=== PATIENT | female | born 1950 | race Caucasian/White ===

== ENCOUNTER 2019-03-23 16:15 | Emergency (ER) | payer MEDICARE, MEDICAID ==
[~2019-03-23] VITALS: Ht 180.3 cm; Wt 100.0 kg
[~2019-03-23 16:15] MED LIST: ATOR40TA PO; BAC10T PO; CHOL400T32 PO; CYA500T PO; DOCU100C68 PO; EFF25T PO; FERR325T28 PO; GABA-338 PO; LISI-222 PO; LOP25T PO; OMEP-84 PO; OXYC-658 PO; PER5325T PO; SYN0.075T PO; [UNRECOGNIZED DRUG - OTHER]
[2019-03-23 17:14] VITALS: BP 172/74
== END 2019-03-23 17:25 | disposition home or self-care (01) ==
LOC: ER 16:15
DX: S01.112A Laceration without foreign body of left eyelid and periocular area, initial encounter (principal); I10 Essential (primary) hypertension; K21.9 Gastro-esophageal reflux disease without esophagitis; Z90.710 Acquired absence of both cervix and uterus; Z98.890 Other specified postprocedural states; Z88.8 Allergy status to other drugs, medicaments and biological substances; Z79.899 Other long term (current) drug therapy; W01.0XXA Fall on same level from slipping, tripping and stumbling without subsequent striking against object, initial encounter; Y93.89 Activity, other specified; Y92.89 Other specified places as the place of occurrence of the external cause; Y99.8 Other external cause status
CPT/HCPCS: 12001; 70450; 99284

== ENCOUNTER 2019-11-14 08:45 | Inpatient (IN) | payer MEDICAID, MEDICARE, OTHER ==
[2019-11-14] VITALS (11 sets, daily range): BP systolic 135–170; BP diastolic 65–92
[~2019-11-14] VITALS: Ht 165.1 cm; Wt 94.0 kg
[~2019-11-14 08:45] MED LIST changes: -CYA500T PO; +CYAN500T63 PO
[2019-11-14] MEDS ORDERED: normal saline 1000ML IV soln IV ONE (09:10)
[2019-11-14] MEDS ORDERED: ondansetron/PF 4mg/2ml inj IV ONE (09:10)
[2019-11-14] MEDS ORDERED: pantoprazole 40 MG vial IV ONE (09:10)
[2019-11-14] MEDS: pantoprazole 40MG/NS 100ML BAG 100 ML IV SCH ×3 (09:48→16:00)
[2019-11-14 10:48] LABS: ALANINE AMINOTRANSFERASE 24 U/L (12-78); ALBUMIN 3.8 G/DL (3.4-5.0); ALBUMIN/GLOBULIN RATIO 0.9 (1.1-1.5); ALKALINE PHOSPHATASE 123 IU/L (46-116); ANION GAP 12 (8-16); ASPARTATE AMINO TRANSFERASE 26 U/L (10-37); BILIRUBIN,TOTAL 0.9 MG/DL (0.1-1.0); BLOOD UREA NITROGEN 21 MG/DL (7-18); BUN/CREATININE RATIO 17.5 (6.6-38.0); CALCIUM 10.1 MG/DL (8.5-10.1); CHLORIDE 103 MMOL/L (99-107); GLUCOSE 110 MG/DL (70-104); POTASSIUM 3.8 MMOL/L (3.5-5.1); SODIUM 139 MMOL/L (135-145); TOTAL PROTEIN 8.1 G/DL (6.4-8.2); eGFR 45 ML/MIN
[2019-11-14 11:24] LABS: BASOPHILS # (AUTO) 0.1 X10'3 (0-0.2); BASOPHILS % (AUTO) 0.5 % (0-1); EOSINOPHILS % (AUTO) 0.1 % (0-6); HEMATOCRIT 38.8 % (35.0-45.0); LYMPHOCYTES # (AUTO) 1.3 X10'3 (1.1-4.8); MEAN CORPUSCULAR HEMOGLOBIN 29.6 PG (27.0-31.0); MEAN CORPUSCULAR HGB CONC 33.6 g/dL (33.0-36.5); MEAN CORPUSCULAR VOLUME 88.2 FL (78-98); MEAN PLATELET VOLUME 8.8 FL (7.4-10.4); MONOCYTES # (AUTO) 0.6 X10'3 (0-0.9); MONOCYTES % (AUTO) 4.8 % (2-12); NEUTROPHILS % (AUTO) 83.6 % (42-75); PLATELET COUNT 338 X10'3 (140-440); RED CELL DISTRIBUTION WIDTH 13.8 % (11.5-14.5); WHITE BLOOD COUNT 11.9 X10'3 (4.5-11.0)
[2019-11-14 11:50] LABS: PARTIAL THROMBOPLASTIN TIME 24 SECONDS (22-32)
[2019-11-14] MEDS ORDERED: MELO-102 PO (12:48)
[2019-11-14] MEDS ORDERED: HYDR12.55 PO (12:48)
[2019-11-14] MEDS ORDERED: LEVO100T9 PO (12:49)
[2019-11-14] MEDS ORDERED: MIRA50TA PO (12:52)
[2019-11-14] MEDS ORDERED: BUPR150T6 PO (12:52)
[2019-11-14] MEDS ORDERED: GABA600T13 PO (12:52)
[2019-11-14] MEDS ORDERED: ALEN35TA21 PO (12:52)
[2019-11-14] MEDS ORDERED: magnesium hydroxide 30ml (MOM) UD suspension PO PRN (12:55)
[2019-11-14] MEDS ORDERED: metoclopramide 5 mg/ml inj IV PRN (12:55)
[2019-11-14] MEDS ORDERED: ondansetron/PF 4mg/2ml inj IV PRN (12:55)
[2019-11-14] MEDS ORDERED: HYDROcodone/acetaminophen 10/325mg tab PO PRN (12:55)
[2019-11-14] MEDS ORDERED: diphenhydrAMINE 25mg capsule PO PRN (12:55)
[2019-11-14] MEDS ORDERED: mag hydrox/Alum hydrox/simeth 30ml oral suspension PO PRN (12:55)
[2019-11-14] MEDS ORDERED: diphenhydrAMINE 50 mg/ml inj IV PRN (12:55)
[2019-11-14] MEDS ORDERED: magnesium 4gm in 100ml NS 100 ML IV PRN (12:55)
[2019-11-14] MEDS ORDERED: magnesium 2GM in 50ml NS 50 ML IV PRN (12:55)
[2019-11-14] MEDS ORDERED: potassium CL 10mEq/100ml bag 100 ML IV PRN ×2 (12:55)
[2019-11-14] MEDS ORDERED: acetaminophen 650mg rectal suppository RC PRN (12:55)
[2019-11-14] MEDS ORDERED: acetaminophen 325mg tablet PO PRN ×2 (12:55)
[2019-11-14] MEDS ORDERED: potassium Cl 20 mEq SR tablet PO PRN (12:55)
[2019-11-14] MEDS ORDERED: HYDROcodone/acetaminophen 5mg/325mg tablet PO PRN (12:55)
[2019-11-14] MEDS ORDERED: magnesium Cl slow-release 64mg tablet PO PRN (12:55)
[2019-11-14] MEDS ORDERED: bisacodyl 10mg suppository rectal RC PRN (12:55)
--- NOTE | 2019-11-14 14:02 | NUR ---
PT IV RAC INFULTRATED, REMOVED IV, CANULA INTACT, GAUZE AND COBAN APPLIED, PICC NURSE PAGED TO HAVE PIV PLACED.
--- NOTE | 2019-11-14 14:04 | NUR ---
PICC NURSES AT BEDSIDE NOW.
--- NOTE | 2019-11-14 14:22 | NUR ---
PICC NURSE IS FINISHED, ESTABLISHED PIV RIGHT UPPER ARM 20 GAUGE, PT TOLERATED PROCEDURE WELL.
[2019-11-14] MEDS ORDERED: pantoprazole 40MG/NS 100ML BAG 100 ML IV SCH (16:00)
[2019-11-14] MEDS ORDERED: MIDAZolam 5mg/5ml vial ONE (16:12)
[2019-11-14] MEDS ORDERED: fentaNYL/PF 50MCG/1 ML 2ML syringe ONE (16:12)
[2019-11-14] MEDS ORDERED: LIDOcaine Viscous 15ml cup ONE (16:12)
[2019-11-14 16:39] LABS: OCCULT BLOOD STOOL POSITIVE (Neg)
[2019-11-14] MEDS: K and/or MAG REPLACEMENT MC SCH (20:00)
[2019-11-14] MEDS: docusate sod 100mg capsule PO SCH (20:00)
[2019-11-14] MEDS: normal saline 1000ml 1,000 ML IV SCH ×2 (20:03→22:54)
[2019-11-14] MEDS: nystatin 15 GM powder TP SCH (21:59)
[2019-11-14] MEDS: temazepam 15mg capsule PO PRN (21:59)
--- NOTE | 2019-11-14 21:59 | NUR ---
Patient in room GUY 348. I have received report from LOLA Jenkins and had the opportunity to ask questions and assume patient care.
[2019-11-15] MEDS: gabapentin 300mg capsule PO SCH ×3 (00:30→16:45)
[2019-11-15] MEDS: pantoprazole 40MG/NS 100ML BAG 100 ML IV SCH ×5 (01:00→16:00)
[2019-11-15] MEDS ORDERED: BORIC ACID EACHEYE ONE (02:05)
[2019-11-15] MEDS ORDERED: [UNRECOGNIZED DRUG - OTHER] EACHEYE ONE (02:05)
[2019-11-15] MEDS ORDERED: WATER EACHEYE ONE (02:05)
[2019-11-15] MEDS ORDERED: SODIUM CHLORIDE EACHEYE ONE (02:05)
[2019-11-15 05:04] LABS: HEMATOCRIT 30.8 % (35.0-45.0); HEMOGLOBIN 10.5 g/dl (12.0-16.0); MEAN CORPUSCULAR HEMOGLOBIN 30.7 PG (27.0-31.0); MEAN CORPUSCULAR HGB CONC 34.1 g/dL (33.0-36.5); MEAN CORPUSCULAR VOLUME 89.8 FL (78-98); MEAN PLATELET VOLUME 9.4 FL (7.4-10.4); PLATELET COUNT 258 X10'3 (140-440); RED BLOOD COUNT 3.43 X10'6 (4.20-5.60); RED CELL DISTRIBUTION WIDTH 13.7 % (11.5-14.5); WHITE BLOOD COUNT 8.5 X10'3 (4.5-11.0)
[2019-11-15 05:18] LABS: ALBUMIN 2.8 G/DL (3.4-5.0); ANION GAP 9 (8-16); BLOOD UREA NITROGEN 14 MG/DL (7-18); BUN/CREATININE RATIO 14.1 (6.6-38.0); CALCIUM 8.1 MG/DL (8.5-10.1); CHLORIDE 109 MMOL/L (99-107); CREATININE 0.99 MG/DL (0.40-0.90); GLUCOSE 90 MG/DL (70-104); MAGNESIUM 1.6 MG/DL (1.5-2.4); POTASSIUM 3.4 MMOL/L (3.5-5.1); SODIUM 142 MMOL/L (135-145); TOTAL CARBON DIOXIDE 24.4 MMOL/L (24-32); eGFR 56 ML/MIN
[2019-11-15] MEDS: normal saline 1000ml 1,000 ML IV SCH (05:45)
--- NOTE | 2019-11-15 06:44 | NUR ---
Problems reprioritized. Patient report given, questions answered & plan of care reviewed with LOLA Feliz.
[2019-11-15 07:00] VITALS: BP 153/80
[2019-11-15] MEDS: K and/or MAG REPLACEMENT MC SCH ×2 (08:00→20:00)
[2019-11-15] MEDS: levoTHYROXINE 100mcg tablet PO SCH (09:03)
[2019-11-15] MEDS: mirabegron 25mg ER tablet PO SCH (09:04)
[2019-11-15] MEDS: docusate sod 100mg capsule PO SCH ×2 (09:04→20:00)
[2019-11-15] MEDS: HYDROchlorothiazide 12.5mg capsule PO SCH (09:05)
[2019-11-15] MEDS: potassium Cl 20 mEq SR tablet PO PRN ×2 (09:05→19:25)
[2019-11-15] MEDS: metoprolol tartrate 25mg tablet PO SCH (09:05)
[2019-11-15] MEDS: donepezil 5mg tablet PO SCH (09:06)
[2019-11-15] MEDS: buproprion 150mg XL (24-hour) tablet PO SCH (09:06)
[2019-11-15] MEDS: nystatin 15 GM powder TP SCH ×3 (09:06→21:37)
[2019-11-15 11:00] VITALS: BP 128/72
[2019-11-15] MEDS ORDERED: [UNRECOGNIZED DRUG - OTHER] EACHEYE PRN (12:15)
[2019-11-15] MEDS ORDERED: SODIUM CHLORIDE EACHEYE PRN (12:15)
[2019-11-15] MEDS ORDERED: BORIC ACID EACHEYE PRN (12:15)
[2019-11-15] MEDS ORDERED: WATER EACHEYE PRN (12:15)
--- NOTE | 2019-11-15 12:55 | NUR ---
Spoke to MD about pt. and her irritated eyeballs. Md order scheduled eye irrigations and also PRN q4 hour. He is aware of slight drop in H&H. No plans to discharge pt. at this time r/t the need to monitor H&H status and possible colonoscopy.
[2019-11-15] MEDS: SODIUM CHLORIDE EACHEYE SCH ×2 (13:52→19:34)
[2019-11-15] MEDS: [UNRECOGNIZED DRUG - OTHER] EACHEYE SCH ×2 (13:52→19:34)
[2019-11-15] MEDS: BORIC ACID EACHEYE SCH ×2 (13:52→19:34)
[2019-11-15] MEDS: WATER EACHEYE SCH ×2 (13:52→19:34)
[2019-11-15 18:00] VITALS: BP 137/70
--- NOTE | 2019-11-15 19:04 | NUR ---
Gave report to Samantha DAVILA.
[2019-11-15] MEDS: pantoprazole 40mg Tablet.DR PO SCH (19:39)
[2019-11-15] MEDS ORDERED: atorvastatin 20mg tablet PO SCH (21:00)
[2019-11-15] MEDS: temazepam 15mg capsule PO PRN (21:51)
[2019-11-15 23:59] VITALS: BP 140/68
[2019-11-16] MEDS: gabapentin 300mg capsule PO SCH ×2 (01:57→09:07)
[2019-11-16 05:10] LABS: HEMATOCRIT 32.7 % (35.0-45.0); MEAN CORPUSCULAR HEMOGLOBIN 30.1 PG (27.0-31.0); MEAN CORPUSCULAR HGB CONC 33.7 g/dL (33.0-36.5); MEAN CORPUSCULAR VOLUME 89.3 FL (78-98); MEAN PLATELET VOLUME 9.4 FL (7.4-10.4); PLATELET COUNT 258 X10'3 (140-440); RED BLOOD COUNT 3.66 X10'6 (4.20-5.60); RED CELL DISTRIBUTION WIDTH 13.6 % (11.5-14.5); WHITE BLOOD COUNT 8.2 X10'3 (4.5-11.0)
[2019-11-16 05:16] LABS: ALBUMIN 2.8 G/DL (3.4-5.0); ANION GAP 3 (8-16); BLOOD UREA NITROGEN 13 MG/DL (7-18); BUN/CREATININE RATIO 12.9 (6.6-38.0); CALCIUM 8.7 MG/DL (8.5-10.1); CHLORIDE 108 MMOL/L (99-107); CREATININE 1.01 MG/DL (0.40-0.90); GLUCOSE 97 MG/DL (70-104); MAGNESIUM 1.7 MG/DL (1.5-2.4); SODIUM 138 MMOL/L (135-145); TOTAL CARBON DIOXIDE 27.1 MMOL/L (24-32); eGFR 54 ML/MIN
--- NOTE | 2019-11-16 06:15 | NUR ---
Patient in room GUY 348. I have received report from Samantha Boogie RN & Emilee RN and had the opportunity to ask questions and assume patient care.
[2019-11-16 06:30] VITALS: BP 127/62
--- NOTE | 2019-11-16 06:39 | NUR ---
Problems reprioritized. Patient report given, questions answered & plan of care reviewed with LOLA Burnham.
[2019-11-16] MEDS: K and/or MAG REPLACEMENT MC SCH (07:03)
[2019-11-16] MEDS: buproprion 150mg XL (24-hour) tablet PO SCH (09:06)
[2019-11-16] MEDS: HYDROchlorothiazide 12.5mg capsule PO SCH (09:06)
[2019-11-16] MEDS: docusate sod 100mg capsule PO SCH (09:06)
[2019-11-16] MEDS: levoTHYROXINE 100mcg tablet PO SCH (09:07)
[2019-11-16] MEDS: pantoprazole 40mg Tablet.DR PO SCH (09:07)
[2019-11-16] MEDS: metoprolol tartrate 25mg tablet PO SCH (09:09)
[2019-11-16] MEDS: mirabegron 25mg ER tablet PO SCH (09:10)
[2019-11-16] MEDS: donepezil 5mg tablet PO SCH (09:10)
[2019-11-16] MEDS: nystatin 15 GM powder TP SCH (09:11)
[2019-11-16] MEDS: WATER EACHEYE SCH (09:34)
[2019-11-16] MEDS: BORIC ACID EACHEYE SCH (09:34)
[2019-11-16] MEDS: [UNRECOGNIZED DRUG - OTHER] EACHEYE SCH (09:34)
[2019-11-16] MEDS: SODIUM CHLORIDE EACHEYE SCH (09:34)
[2019-11-16] MEDS ORDERED: NYSPWD TP (10:00)
[2019-11-16] MEDS ORDERED: PANT40TA4 PO (10:00)
[2019-11-16 11:00] VITALS: BP 129/73
--- NOTE | 2019-11-16 12:55 | NUR ---
DC inst provided to pt & pt's . IV DC'd, tip intact. All belongings sent w/pt. WC to front lobby.
== END 2019-11-16 12:50 | disposition home or self-care (01) | DRG 391 ==
LOC: ER 08:46 → ED HOLD 12:54 → SUR 3N 14:52 → CMPBEDREQ 20:01
PROVIDERS: ADMIT Family Medicine; ATTEND Family Medicine
PROC: 0DB68ZX Excision of Stomach, Via Natural or Artificial Opening Endoscopic, Diagnostic (ICD-10-PCS; principal; 2019-11-14)
DX: K21.0 Gastro-esophageal reflux disease with esophagitis (principal); N17.0 Acute kidney failure with tubular necrosis; K57.90 Diverticulosis of intestine, part unspecified, without perforation or abscess without bleeding; E03.9 Hypothyroidism, unspecified; E78.5 Hyperlipidemia, unspecified; M25.661 Stiffness of right knee, not elsewhere classified; I12.9 Hypertensive chronic kidney disease with stage 1 through stage 4 chronic kidney disease, or unspecified chronic kidney disease; N18.9 Chronic kidney disease, unspecified; D64.9 Anemia, unspecified; R00.0 Tachycardia, unspecified; E86.0 Dehydration; F32.9 Major depressive disorder, single episode, unspecified; K44.9 Diaphragmatic hernia without obstruction or gangrene; Z79.899 Other long term (current) drug therapy; Z90.710 Acquired absence of both cervix and uterus; Z88.8 Allergy status to other drugs, medicaments and biological substances; Z98.51 Tubal ligation status
CPT/HCPCS: 36415; 43239; 71045; 80048; 80053; 82272; 83605; 83735; 84443; 85025; 85027; 85610; 85730; 86885; 86900; 86901; 87081; 88305; 88342; 93005; 96361; 96374; 96375; 99152; 99285; A4620; C9113; G0378; J2250; J2405; J3010; J7030; J7040

== ENCOUNTER 2022-10-27 10:27 | Emergency (ER) | payer OTHER, BC, MEDICAID ==
[~2022-10-27] VITALS: Ht 166.4 cm; Wt 70.5 kg
[~2022-10-27 10:27] MED LIST changes: +ACET-812 PO; +ALEN35TA53 PO; -BAC10T PO; +BUPR150T23 PO; +CHOL100017 PO; -CHOL400T32 PO; +CIPR-202 PO; -CYAN500T63 PO; -DOCU100C68 PO; +DOCU250C34 PO; -EFF25T PO; -FERR325T28 PO; -GABA-338 PO; +GABA600T13 PO; +HYDR12.55 PO; +LEVO100T9 PO; -LISI-222 PO; +LOSA50TA64 PO; +MELA10CA2 PO; +MELO-102 PO; +METR-159 PO; -OMEP-84 PO; +OMEP20CA16 PO; +OXYB5TAB16 PO; -OXYC-658 PO; -PER5325T PO; +POLY17PO10 PO; +POTA8CAP20 PO; -SYN0.075T PO; +TRAZ-251 PO; -[UNRECOGNIZED DRUG - OTHER]
[2022-10-27 10:59] LABS: BASOPHILS # (AUTO) 0.1 X10'3 (0-0.2); BASOPHILS % (AUTO) 1.2 % (0-1); EOSINOPHILS % (AUTO) 0.2 % (0-6); HEMATOCRIT 31.4 % (35.0-45.0); HEMOGLOBIN 9.7 g/dl (12.0-16.0); LYMPHOCYTES # (AUTO) 1.8 X10'3 (1.1-4.8); LYMPHOCYTES % (AUTO) 18.1 % (21-51); MEAN CORPUSCULAR HEMOGLOBIN 24.6 PG (27.0-31.0); MEAN CORPUSCULAR VOLUME 79.2 FL (78-98); MEAN PLATELET VOLUME 8.3 FL (7.4-10.4); MONOCYTES # (AUTO) 0.9 X10'3 (0-0.9); MONOCYTES % (AUTO) 9.1 % (2-12); NEUTROPHILS # (AUTO) 7.3 X10'3 (1.8-7.7); NEUTROPHILS % (AUTO) 71.4 % (42-75); PLATELET COUNT 416 X10'3 (140-440); RED BLOOD COUNT 3.96 X10'6 (4.20-5.60); WHITE BLOOD COUNT 10.2 X10'3 (4.5-11.0)
[2022-10-27 11:12] LABS: ALANINE AMINOTRANSFERASE 11 U/L (12-78); ALBUMIN 3.8 G/DL (3.4-5.0); ALBUMIN/GLOBULIN RATIO 0.9 (1.1-1.5); ALKALINE PHOSPHATASE 60 IU/L (46-116); ANION GAP 19 (8-16); ASPARTATE AMINO TRANSFERASE 17 U/L (10-37); BILIRUBIN,TOTAL 0.6 MG/DL (0.1-1.0); BLOOD UREA NITROGEN 14 MG/DL (7-18); BUN/CREATININE RATIO 13.6 (6.6-38.0); CALCIUM 9.5 MG/DL (8.5-10.1); CHLORIDE 101 MMOL/L (99-107); CREATININE 1.03 MG/DL (0.40-0.90); GLUCOSE 111 MG/DL (70-104); LIPASE 69 U/L (73-393); POTASSIUM 3.3 MMOL/L (3.5-5.1); SODIUM 137 MMOL/L (135-145); TOTAL CARBON DIOXIDE 17.1 MMOL/L (24-32); TOTAL PROTEIN 7.9 G/DL (6.4-8.2); eGFR 53 ML/MIN
[2022-10-27 11:16] LABS: ANISOCYTOSIS 2+; ELLIPTOCYTES FEW; MICROCYTOSIS 1+; PLATELET ESTIMATE NORMAL
[2022-10-27 11:17] LABS: HYPOCHROMASIA 1+; POLYCHROMASIA FEW
[2022-10-27] MEDS ORDERED: magnesium citrate 296ml oral solution PO ONE (12:25)
[2022-10-27] MEDS ORDERED: mineral oil 133ml enema RC STA (12:25)
[2022-10-27] MEDS ORDERED: bisacodyl 10mg suppository rectal RC STA (12:53)
[2022-10-27] MEDS ORDERED: lactulose 20gm/30ml cup PO ONE (12:55)
[2022-10-27] MEDS ORDERED: polyethylene glycol 3350 17gm powd pack PO SCH (12:55)
--- NOTE | 2022-10-27 13:00 | NUR ---
verbal orders to give mineral enema if its available in [facility].
[2022-10-27 13:12] LABS: CLARITY,URINE SLIGHTLY CLOUDY (Clear); GLUCOSE, URINE NEGATIVE (Neg); KETONES,URINE >=80 mg/dl (Neg); LEUKOCYTE ESTERASE ,URINE SMALL (Neg); NITRITES, URINE NEGATIVE (Neg); OCCULT BLOOD,URINE SMALL (Neg); PROTEIN,URINE NEGATIVE (Neg); UROBILINOGEN,URINE 0.2 E.U/dL (0.2-1.0)
[2022-10-27 13:14] LABS: UA COLLECTION TYPE CLN CATCH MIDSTREAM
[2022-10-27 13:15] LABS: COLOR,URINE YELLOW (Yellow)
[2022-10-27 13:21] LABS: BACTERIA,URINE 2+ /HPF (Neg); MUCUS STRANDS MANY /LPF (Neg); RBC,URINE 0-2 /HPF (0-2); SQUAMOUS EPITHELIAL CELL,UR MANY /LPF (FEW); WBC CLUMPS,URINE FEW /HPF (NEGATIVE); WBC,URINE 0-4 /HPF (0-4)
--- NOTE | 2022-10-27 13:30 | NUR ---
NOTIFIED DR ESTRADA THAT WE HAVE MINERAL ENEMA , PER MD ROSE TO ADMIN THE ENEMA FOR CONSTIPATION.
[2022-10-27] MEDS ORDERED: POTASSIUM BICARB 20meq eff tab 20 MEQ TABLET.EFF PO ONE (14:10)
--- NOTE | 2022-10-27 14:33 | NUR ---
pt has small soft bm after the mineral enema.
--- NOTE | 2022-10-27 15:10 | NUR ---
PT STATED SHE HAD ALREADY CALLED HER TO PICK HER UP .
[2022-10-27 15:38] VITALS: BP 152/90
== END 2022-10-27 16:21 | disposition home or self-care (01) ==
LOC: ER 10:28
DX: K59.00 Constipation, unspecified (principal); E87.6 Hypokalemia; E78.00 Pure hypercholesterolemia, unspecified; I10 Essential (primary) hypertension; K21.9 Gastro-esophageal reflux disease without esophagitis; E03.9 Hypothyroidism, unspecified; Z86.2 Personal history of diseases of the blood and blood-forming organs and certain disorders involving the immune mechanism; Z90.710 Acquired absence of both cervix and uterus; Z98.890 Other specified postprocedural states; Z79.2 Long term (current) use of antibiotics; Z79.899 Other long term (current) drug therapy
CPT/HCPCS: 74018; 80053; 81001; 83690; 85008; 85025; 99285

== ENCOUNTER 2022-11-01 10:08 | Emergency (ER) | payer OTHER, BC, MEDICAID ==
[~2022-11-01] VITALS: Ht 165.1 cm; Wt 70.5 kg
[~2022-11-01 10:08] MED LIST changes: -CIPR-202 PO; -METR-159 PO; -POLY17PO10 PO
[2022-11-01] MEDS ORDERED: acetaminophen 325mg tablet PO ONE (11:30)
[2022-11-01] MEDS ORDERED: ketorolac trometh inj. 60 MG/2 ML VIAL IM ONE (11:30)
[2022-11-01 12:11] VITALS: BP 143/70
--- NOTE | 2022-11-01 12:17 | NUR ---
Pt laying in bed, eyes closed. Respirations are even and unlabored. Pt in no acute distress.
--- NOTE | 2022-11-01 13:02 | NUR ---
Pt able to ambulate approximately 15 feet with use of walker. Call to [facility] for ride.
--- NOTE | 2022-11-01 14:15 | NUR ---
Pt still awaiting transportation. Pt's significant other is patients ride. Unable to get ahold of s/o as he does not have a cell phone. Home phone has been called numerous times without answer. Pt laying in bed in no acute distress.
== END 2022-11-01 14:54 | disposition home or self-care (01) ==
LOC: ER 10:09
DX: M25.561 Pain in right knee (principal); E78.00 Pure hypercholesterolemia, unspecified; I10 Essential (primary) hypertension; K21.9 Gastro-esophageal reflux disease without esophagitis; E03.9 Hypothyroidism, unspecified; Z90.710 Acquired absence of both cervix and uterus
CPT/HCPCS: 73564; 96372; 99284; J1885; A6449

== ENCOUNTER 2024-03-31 15:53 | Emergency (ER) | payer OTHER, BC, MEDICAID ==
[~2024-03-31] VITALS: Ht 165.1 cm; Wt 68.0 kg
[~2024-03-31 15:53] MED LIST changes: +LOPE2CAP PO; +ONDA8TAB13 PO; -OXYB5TAB16 PO; +OXYB5TAB21 PO
[2024-03-31 16:03] VITALS: BP 130/86; PULSE 93; O2SAT 97
[2024-03-31] MEDS ORDERED: PRED10TA23 PO (18:53)
[2024-03-31] MEDS ORDERED: MELO-100 PO (18:53)
[2024-03-31 19:06] VITALS: RESP 18; TEMP 98
== END 2024-03-31 19:21 | disposition home or self-care (01) ==
LOC: ER 15:54
DX: M19.011 Primary osteoarthritis, right shoulder (principal); M17.11 Unilateral primary osteoarthritis, right knee; E78.00 Pure hypercholesterolemia, unspecified; I10 Essential (primary) hypertension; K21.9 Gastro-esophageal reflux disease without esophagitis; E03.9 Hypothyroidism, unspecified; Z79.899 Other long term (current) drug therapy; Z79.1 Long term (current) use of non-steroidal anti-inflammatories (NSAID); Z79.2 Long term (current) use of antibiotics; Z90.710 Acquired absence of both cervix and uterus
CPT/HCPCS: 73030; 73564; 99284

== ENCOUNTER 2025-06-15 12:57 | Inpatient (IN) | payer OTHER, BC ==
[~2025-06-15] VITALS: Ht 166.4 cm; Wt 83.3 kg
[~2025-06-15 12:57] MED LIST changes: +GABA-1405 PO; -GABA600T13 PO; +MELA10CA11 PO; -MELA10CA2 PO; +MELO-100 PO; +ONDA-245 PO; -ONDA8TAB13 PO
--- NOTE | 2025-06-15 13:27 | ELECTROCARDIOGRAPH REPORT ---
[facility] Test Date: 2025-06-15 Test Time: 13:23:59 Pat Name: ERLIN NÚÑEZ Department: [facility] Patient ID: [facility]-[id number] Room: ED 10 Gender: F Blood Bank Specialist: : 1950 Requested By: SAIDA PADILLA Order Number: [id number] Reading MD: Dr. Billy Nieto Measurements Intervals [address] [place] Rate: 76 P: 29 AL: 185 QRS: -33 QRSD: 99 T: 7 QT: 401 QTc: 451 Interpretive Statements Sinus rhythm Inferior infarct, old Electronically Signed On 06-15-2025 18:22:[address] Billy Nieto Please click the below link to view image of tracing.
--- NOTE | 2025-06-15 14:04 | RADIOLOGY REPORT ---
EXAM: DI CHEST,SINGLE VIEW HISTORY: cough COMPARISON: CHEST,SINGLE VIEW on DOS: 12/12/22, CHEST,SINGLE VIEW on DOS: 09/23/22, CHEST,SINGLE VIEW o n DOS: 11/14/19 TECHNIQUE: Portable upright AP view of the chest was performed. FINDINGS: The film is mildly rotated LPO. No pneumothorax, consolidative infiltrates, or pulmonary edema. The h eart is not enlarged. There is retrocardiac hiatal hernia measuring 10 cm transverse, slightly larger than that seen previously. There is a spinal cord stimulator. There are degenerative changes of the right glenohumeral joint with inferiorly projecting marginal osteophytes. IMPRESSION: 1. No acute intrathoracic process. 2. Large hiatal hernia.
--- NOTE | 2025-06-15 14:11 | Physician Documentation ---
History of Present Illness ~ Chief Complaint: Cough Stated Complaint: COUGH Time Seen by MD: 13:10 Primary Medical Doctor: Lori Donnelly Mode of Arrival: EMS HPI 75-year-old female presents to the ED with a complaint of one week of increased weakness with cough. She states her only diagnoses are hypertension and depression. Reports increased shortness of breath denies chest pain or nausea vomiting. Medication Reconciliation Allergies: Uncoded Allergies: DIPHENHYDRAMINE (Allergy, Unknown, 06/15/25) Scheduled Acetaminophen (Tylenol Extra Strength), 2 TABLET PO HS, (Reported) Alendronate Sodium (Alendronate Sodium), 1 TAB PO Q7D, (Reported) Atorvastatin Calcium* (Lipitor*), 40 MG PO DAILY, (Reported) Bupropion HCl (Bupropion Xl), 1 TABLET PO DAILY, (Reported) Cholecalciferol (Vitamin D3) (Vitamin D3), 1 TAB PO DAILY, (Reported) Docusate Sodium (Col-Rite), 250 MG PO DAILY, (Reported) Gabapentin (Gabapentin), 1 TAB PO Q8H, (Reported) Hydrochlorothiazide (Hydrochlorothiazide), 1 TAB PO DAILY, (Reported) Levothyroxine Sodium (Levothyroxine Sodium), 100 MCG PO DAILY, (Reported) Loperamide Hcl (Loperamide), 2 CAP PO Q6H Losartan Potassium (Losartan Potassium), 1 TAB PO DAILY, (Reported) Melatonin (Melatonin), 3 CAP PO HS, (Reported) Meloxicam (Meloxicam), 1 TAB PO HS, (Reported) Meloxicam* (Meloxicam*), 1 TAB PO DAILY Metoprolol Tartrate* (Lopressor*), 12.5 MG PO DAILY, (Reported) Omeprazole (Omeprazole), 1 CAP PO DAILY, (Reported) Ondansetron 8mg ODT (Ondansetron Odt), 1 TAB PO Q6H Oxybutynin Chloride (Oxybutynin Chloride), 1 TAB PO DAILY, (Reported) Potassium Chloride 8 MEQ* (Slow-K 8 Meq*), 1 CAP PO DAILY, (Reported) Trazodone HCl (Trazodone HCl), 1 TAB PO HS, (Reported) Past Medical History Past Medical History: High Cholesterol, Hypertension, GERD, GI Bleed, Anemia, Hypothyroidism, Osteoporosis, *PSYCH* Past Surgical History: hysterectomy, orthopedic surgeries, other Alcohol Use: Rarely Drug Use: none Lives with: S/O Lives In: Home Occupation: retired Physical Exam Vital Signs: Temperature: 98.3, Source: Oral, Heart Rate: 82, Respiratory Rate: 16, BP: 130/53, Pulse Oximetry: 94, Weight: 83.300 Physical Exam General: Alert, no apparent distress. HEENT: PERRL, EOMI, no injection, moist mucous membranes. Neck: Full range of motion. Respiratory: Lungs clear, no respiratory distress. Chest: No accessory muscle use. Cardiovascular: Regular rate and rhythm, no murmurs. Gastrointestinal: Soft, nontender, nondistended. Bowels sounds present. Extremities: Normal range of motion, no deformity. Neurologic: Oriented x4. Psychiatric: Normal mood and affect. Skin: Normal color, warm and dry. No edema, no ecchymosis. Progress Results/Orders Results/Orders Orders - REGIS OSCAR HOSE SPRAYER Chest,Single View (06/15/25 13:16) Monitor (06/15/25 14:01) Saline Lock (06/15/25 14:01) Oxygen (06/15/25 14:01) Electrocardiogram (06/15/25 14:01) Hs Troponin I W Calculations (06/15/25 16:01) Hs Troponin I W Calculations (06/15/25 17:01) Urinalysis, Cult If Indicated (06/15/25 14:50) Page Hospitalist (06/15/25 ) Completed Orders - REGIS OSCAR HOSE SPRAYER Chest,Single View (06/15/25 13:16) Cbc/Diff (06/15/25 14:01) BMP (06/15/25 14:01) PBNP (06/15/25 14:01) Hs Troponin I W Calculations (06/15/25 14:01) Vital Signs 06/15/25 06/15/25 06/15/25 06/15/25 13:02 13:10 13:10 14:00 Temp 98.3 98.3 Pulse 83 76 82 Resp 17 17 17 16 B/P (MAP) 150/112 113/51 (71) 130/53 (78) Pulse Ox 93 94 94 06/15/25 15:35 Pulse 80 Resp 17 B/P (MAP) 124/45 (71) Pulse Ox 95 Laboratory Tests Test 06/15/25 14:11 White Blood Count 14.9 H Red Blood Count 3.53 L Hemoglobin 10.1 L Hematocrit 30.9 L Mean Corpuscular Volume 87.7 Mean Corpuscular Hemoglobin 28.7 Mean Corpuscular Hemoglobin Concent 32.8 L Red Cell Distribution Width 15.3 H Platelet Count 354 Mean Platelet Volume 8.1 Neutrophils (%) (Auto) 78.8 H Lymphocytes (%) (Auto) 11.1 L Monocytes (%) (Auto) 5.0 Eosinophils (%) (Auto) 4.6 Basophils (%) (Auto) 0.5 Neutrophils # (Auto) 11.8 H Lymphocytes # (Auto) 1.7 Monocytes # (Auto) 0.7 Eosinophils # (Auto) 0.7 Basophils # (Auto) 0.1 CBC Comment Sodium Level 137 Potassium Level 4.4 Chloride Level 104 Carbon Dioxide Level 26.3 Anion Gap 7 L Blood Urea Nitrogen 30 H Creatinine 1.20 H Estimated GFR/1.73 m2 44 BUN/Creatinine Ratio 25.0 H Glucose Level 100 Calcium Level 8.8 Troponin I High Sensitivity < 4 L Troponin I High Sens Percent Delta Troponin I Hi Sens Absolute Change Pro-B-Type Natriuretic Peptide 99 Albumin 2.8 L Chemistry Comments Departure Disposition: 09 ADMITTED INPATIENT Impression: Primary Impression: Cough Additional Impressions: Anemia Weakness Referrals: NO PRIMARY CARE PROVIDER (PCP) Signature Scribe Signature: fg Attestation: Scribed for Regis Oscar Hog Man by Regis oFrd NP . 06/15/25 15:08 REGIS OSCAR NP Jun 15, 2025 14:11
[2025-06-15 14:21] LABS: MEAN PLATELET VOLUME 8.1 FL (7.4-10.4); RED CELL DISTRIBUTION WIDTH 15.3 % (11.5-14.5)
[2025-06-15 14:41] LABS: CREATININE 1.20 MG/DL (0.40-0.90); TOTAL CARBON DIOXIDE 26.3 MMOL/L (24-32); eCRCL 37 ML/MIN; eGFR 44 ML/MIN
[2025-06-15 15:46] LABS: PRO BRAIN NATRIURETIC PEPTIDE 99 PG/ML (0-450)
[2025-06-15] MEDS ORDERED: potassium Cl 40MEQ/1/2NS 520ml 520 ML IV PRN (15:50)
[2025-06-15] MEDS ORDERED: potassium Cl 20 mEq SR tablet PO PRN ×2 (15:50)
[2025-06-15] MEDS ORDERED: ondansetron/PF 4mg/2ml inj IV PRN (15:50)
[2025-06-15] MEDS ORDERED: magnesium sulf-water 4G/100mL 100 ML IV PRN (15:50)
[2025-06-15] MEDS ORDERED: mag hydrox/Alum hydrox/simeth 30ml oral suspension PO PRN (15:50)
[2025-06-15] MEDS ORDERED: magnesium sulf-water 2g/50mL 50 ML IV PRN (15:50)
[2025-06-15] MEDS ORDERED: magnesium Cl slow-release 64mg tablet PO PRN (15:50)
--- NOTE | 2025-06-15 17:46 | HISTORY AND PHYSICAL-Residence ---
History & Physical Providers to CC Resident Creating Document: DARIO BANEGAS, RUTHY ~ History of Present Illness Primary Medical Doctor: Lori Donnelly Reason for Admit\Complaint: Short of Breath and cough History of Present Illness This is a 75-year-old female known case of hypertension, cerebral palsy, wheel chair bound presented in ER with chief complaint of shortness of breath since 6 days and hoarseness of voice since 3-4 days. She is a poor historian. According to the patient when her caregiver took her to restroom she could not stand from the wheelchair and was short of breath, felt dizzy. She did not have a fall. Patient sleep in a propped up position, denied waking up in middle of night feeling short of breath. Patient reported cough since 3 days which is not associated with sputum. She denied fever, nasal congestion,chest pain, denied any postnasal drip also denied regurgitation symptoms In addition to that patient also complains of right leg, right arm pain and she can not raise her right arm and right leg fully since couple of years. Allergies: Uncoded Allergies: DIPHENHYDRAMINE (Allergy, Unknown, 06/15/25) Home Medications Home Medications Active Meloxicam* (Meloxicam) 7.5 Mg Tablet 1 Tab PO DAILY 30 Days Loperamide (Loperamide Hcl) 2 Mg Capsule 2 Cap PO Q6H 5 Days Ondansetron Odt (Ondansetron HCl) 8 Mg Tab.rapdis 1 Tab PO Q6H Reported Vitamin D3 (Cholecalciferol (Vitamin D3)) 25 Mcg Tablet 1 Tab PO DAILY Trazodone HCl 50 Mg Tablet 1 Tab PO HS Losartan Potassium 50 Mg Tablet 1 Tab PO DAILY PT UNSURE IF STARTED TAKING THIS MEDICATION Oxybutynin Chloride 5 Mg Tablet 1 Tab PO DAILY Slow-K 8 Meq* (Potassium Chloride) 8 Meq Capsule.sa 1 Cap PO DAILY 30 Days Omeprazole 20 Mg Capsule.dr 1 Cap PO DAILY 30 Days Melatonin 10 Mg Capsule 3 Cap PO HS 30 Days Meloxicam 15 Mg Tablet 1 Tab PO HS 30 Days Tylenol Extra Strength (Acetaminophen) 500 Mg Tablet 2 Tablet PO HS Col-Rite (Docusate Sodium) 250 Mg Capsule 250 Mg PO DAILY Bupropion Xl (Bupropion HCl) 150 Mg Tab.er.24h 1 Tablet PO DAILY Alendronate Sodium 35 Mg Tablet 1 Tab PO Q7D 28 Days Gabapentin 600 Mg Tablet 1 Tab PO Q8H 30 Days Levothyroxine Sodium 100 Mcg Tablet 100 Mcg PO DAILY Hydrochlorothiazide 12.5 Mg Tablet 1 Tab PO DAILY Lopressor* (Metoprolol Tartrate) 25 Mg Tablet 12.5 Mg PO DAILY Hold if systolic blood pressure less than 100 or heart rate less than 60 Lipitor* (Atorvastatin Calcium) 40 Mg Tablet 40 Mg PO DAILY Past Medical History Past Medical History Hypertension Urinary and Stool Incontinence Cerebral palsy,wheelchair bound. Past Surgical History Surgical History Comment Knee Replacement Past Social History Social History Comment Patient quit smoking in 1970 before that she used to smoke 2 ciggrates daily. Previously patient use to 2 alcholic drinks per day and does not remember when she quit it. No illicit drug abuse. She lives in home with her partner. She has a caregiver. She is wheelchair bound. Smoking: Non-Smoker Alcohol Use: Rarely Drug Use: None Lives with: S/O Lives In: Home Occupation: retired ROS Constitutional: Reports: weakness Eyes: Denies: no symptoms reported, see HPI, pain, discharge, blurred vision, double vision, itching, photophobia, redness, tearing, other ENT: Denies: no symptoms reported, see HPI, ear pain, ear bleeding, ear discharge, hearing loss, ear ringing, nose pain, nose bleeding, nose congestion, nose discharge, throat pain, throat swelling, voice change, mouth pain, mouth bleeding, mouth swelling, other Respiratory: Reports: cough, shortness of breath Cardiovascular: Denies: no symptoms reported, see HPI, chest pain, left arm pain, diaphoresis, lightheadedness, syncope, edema, palpitations, irregular heart rate, other Gastrointestinal: Denies: no symptoms reported, see HPI, abdomen distended, abdominal pain, nausea, vomiting, diarrhea, constipated, melena, hematemesis, hematochezia, rectal bleeding, rectal pain, dysphagia, poor appetite, poor fluid intake, other Genitourinary: Denies: no symptoms reported, see HPI, burning, discharge, dysuria, frequency, flank pain, hematuria, incontinence, pain, decreased urine output, urgency, other Female Genitalia: Denies: no reported symptoms, see HPI, vaginal discharge, vaginal pain, pelvic pain, abnormal bleeding, dyspareunia, , other Musculoskeletal: Denies: no symptoms reported, see HPI, pain, swelling, back pain, gout, joint pain, joint swelling, muscle pain, muscle swelling, muscle stiffness, neck pain, other Integumentary: Denies: no symptoms reported, see HPI, rash, itching, lesions, lumps, bruise(s), wound(s), laceration(s), dryness, change in color, other Exam Vitals: Vital Signs Date Time Temp Pulse Resp B/P (MAP) Pulse Ox O2 Delivery O2 Flow Rate FiO2 06/15/25 17:22 64 12 123/59 (80) 95 0 06/15/25 13:10 98.3 General: General: Awake and Alert, no acute distress. HEENT: Conjunctiva pink, Sclera clear, Mucus Membranes moist. Neck: Supple without masses and tenderness. Resp: Unlabored. Lungs clear to auscultation bilaterally. Heart: Regular Rate and rhythm, normal S1 and S2 without murmur, rub or gallop. Abdomen: It is soft, non tender, no rigidity,bowel sounds present. Extremities: No cyanosis,clubbing ,edema 1+ Skin: Warm and Dry. TYING IN MACHINE OPERATOR: Awake alert and oriented Cranial nerve exam normal. Strength,right lower extremity 3/5, left lower extremity 4/5 Right upper extremity 5/5, left upper extremity 4/5 Diagnostic Data Last Recorded Lab Results: 06/15/25 1411 06/15/25 1411 Advance Care Planning Advanced Care plannin - 30 Minutes (I took 17 minutes in discussing various resucitative measures and patient choose to be full code.) Additional Plan Assessment his is a 75-year-old female known case of hypertension, cerebral palsy, wheel chair bound presented in ER with chief complaint of shortness of breath, weakness, cough.Patient is admitted under observation status for acute bronchitis, physical therapy will be done tomorrow. Acute Bronchitis Patient is afebrile, Wbc count is elevated 14.9 ProBNP: 99, normal. Chest X-ray looks normal. Possible Acute kidney injury like due to renal tubular stasis. Creatinine is 1.20 Baseline creatinine is 0.66 in 2022 NS 50ml/hr Follow up with repeat BMP Hypertension Current BP is normal Home medications include Losartan 50 mg, Metoprolol 25 mg HCTZ 12.5 mg Continue home medication once med rec is done. Hypothyroidism Continue home medication levothyroxine 100 mcg once med rec is done. Hyperlipidemia Continue home medication Atorvastatin 40 mg once med rec is done. History of Cerebral palsy wheelchair bound PT pending. DVT prophylaxis: Heparin Code Status: Full Code. Date of Service: Jun 15, 2025 Billing Provider: XUAN GLASGOW MD Common Visit Codes: [id number] INP/OBS CARE (HIGH) Secondary Visit Codes: [id number] CARE PLAN 30 MINUTES DARIO BANEGAS, RES Jun 15, 2025 17:46 XUAN GLASGOW MD Jun 16, 2025 20:23
[2025-06-15 18:55] VITALS: BP 130/61; PULSE 74; RESP 16; TEMP 98.3; O2SAT 96
[2025-06-15 20:00] VITALS: RESP 16
[2025-06-15] MEDS: K and/or MAG REPLACEMENT MC SCH (20:00)
[2025-06-15] MEDS: docusate sod 100mg capsule PO SCH (20:25)
[2025-06-15] MEDS: heparin, porcine 5000 units/ml vial SQ SCH (20:26)
[2025-06-15 22:00] VITALS: BP 113/62; PULSE 72; RESP 16; TEMP 98; O2SAT 95
[2025-06-16 04:47] LABS: MEAN PLATELET VOLUME 8.6 FL (7.4-10.4); RED CELL DISTRIBUTION WIDTH 14.9 % (11.5-14.5)
[2025-06-16 04:57] LABS: CREATININE 1.09 MG/DL (0.40-0.90); TOTAL CARBON DIOXIDE 24.8 MMOL/L (24-32); eCRCL 41 ML/MIN; eGFR 49 ML/MIN
[2025-06-16 06:00] VITALS: BP 126/55; PULSE 65; RESP 15; TEMP 98.2; O2SAT 95
[2025-06-16] MEDS: ALENDRONATE SODIUM 35 MG PO SCH (07:50)
[2025-06-16 08:00] VITALS: BP_SYST 124; BP_SYST 126; BP_DIAS 53; BP_DIAS 59; PULSE 65; PULSE 78
[2025-06-16] MEDS ORDERED: ondansetron 4mg rapidly disintigrating tab PO PRN (08:00)
[2025-06-16] MEDS: loperamide 2mg capsule PO SCH (08:00)
[2025-06-16] MEDS: BUPROPION HCL 150MG XL 24 HR 150 MG TAB PO SCH (08:23)
[2025-06-16] MEDS: levoTHYROXINE 100mcg tablet PO SCH (08:28)
[2025-06-16 10:00] VITALS: BP 139/53; PULSE 76; RESP 16; TEMP 97.8; O2SAT 96
[2025-06-16] MEDS: magnesium hydroxide 30ml (MOM) UD suspension PO PRN (10:03)
[2025-06-16] MEDS: HYDROcodone/acetaminophen 5mg/325mg tablet PO PRN (11:28)
[2025-06-16 12:03] LABS: UA COLLECTION TYPE CLN CATCH MIDSTREAM
[2025-06-16 12:05] LABS: NITRITES, URINE NEGATIVE (Neg); OCCULT BLOOD,URINE SMALL (Neg)
[2025-06-16 12:06] LABS: LEUKOCYTE ESTERASE ,URINE MODERATE (Neg)
[2025-06-16 12:07] LABS: SQUAMOUS EPITHELIAL CELL,UR FEW /LPF (FEW)
[2025-06-16 12:08] LABS: WBC CLUMPS,URINE MODERATE /HPF (NEGATIVE)
[2025-06-16] MEDS: pantoprazole 40mg Tablet.DR PO SCH (13:05)
--- NOTE | 2025-06-16 13:47 | PROGRESS NOTE- Residence ---
Progress Note - Resident Providers to CC Resident Creating Document: DARIO BANEGAS RES ~ Antibiotic Timeout Antibiotic Ordered?: Yes If Yes, Indications: UTI Subjective Patient is examined at bed, complaining of soreness in right shoulder more than 2 months ago and is getting worse which is excruciating pain and it was rated as 8/10. She lives with her partner and stated that her partner is of no help,She agreed with rehab placement and prefered [employer] because of her friend who works there. Objective Vital Signs Date Time Temp Pulse Resp B/P (MAP) Pulse Ox O2 Delivery O2 Flow Rate FiO2 06/16/25 13:05 16 06/16/25 10:00 97.8 76 139/53 (81) 96 Room Air 06/16/25 08:40 0.0 Result Diagram: 06/16/2540406/16/25404 General: Awake and Alert, no acute distress. HEENT: Conjunctiva pink, Sclera clear, Mucus Membranes moist. Neck: Supple without masses and tenderness. Resp: Unlabored. Lungs clear to auscultation bilaterally. Heart: Regular Rate and rhythm, normal S1 and S2 without murmur, rub or gallop. Abdomen: It is soft, non tender, no rigidity,bowel sounds present. Extremities: No cyanosis,clubbing ,edema 1+ Skin: Warm and Dry. FARM REPORTER: Awake alert and oriented Cranial nerve exam normal. Strength,right lower extremity 3/5, left lower extremity 4/5 Right upper extremity 5/5, left upper extremity 4/5 Assessment Assessment This is a 75-year-old female known case of hypertension, cerebral palsy, wheel chair bound presented in ER with chief complaint of shortness of breath since 6 days and hoarseness of voice since 3-4 days. Plan Plan Urinary Tract Infection UA ordered and is suggestive of UTI IV Rocephin 1 gm IV daily initiated. Monitor for systemic symptoms. Acute kidney injury, likely due to renal tubular stasis. Creatinine has been improved to is 1.09 Baseline creatinine is 0.66 in 2022 NS 50ml/hr Monitor BMP Acute Deconditioning/Weakness Known case of Cerebral palsy PT consulted, patient may benefit from Rehab. custodial manager is aware of it. Right Shoulder pain Patient received [place] 5/325. Hypertension Current BP is normal Home medications include Losartan 50 mg, Metoprolol 25 mg HCTZ 12.5 mg Hypothyroidism Continue levothyroxine 100 mcg once daily. TSH 0.12 Hyperlipidemia Continue home medication Atorvastatin 40 mg once daily. Ordered Lipid panel. Disposition: Most likely discharge tomorrow to Rehab. Dario LAM PGY-1 Date of Service: Jun 16, 2025 Billing Provider: DARIO BANEGAS RES Common Visit Codes: [id number] INP/OBS CARE(HIGH) DARIO BANEGAS RES Jun 16, 2025 13:46 XUAN GLASGOW MD Jun 16, 2025 20:25
[2025-06-16] MEDS: CefTRIAXone/D5W-Rocephin 1gm 50 ML IV SCH (15:33)
[2025-06-16 18:00] VITALS: BP_SYST 130; BP_SYST 146; BP_DIAS 54; BP_DIAS 57; PULSE 73; PULSE 74; PULSE 75; RESP 16; TEMP 97.9; O2SAT 95
[2025-06-16 20:00] VITALS: RESP 20; O2SAT 96
[2025-06-16 22:00] VITALS: BP 116/59; PULSE 72; RESP 16; TEMP 97.8; O2SAT 97
[2025-06-17 05:00] VITALS: BP_SYST 110; BP_SYST 124; BP_DIAS 47; BP_DIAS 52; PULSE 61; PULSE 65; RESP 16; TEMP 97.7; O2SAT 92
[2025-06-17 06:01] LABS: MEAN PLATELET VOLUME 8.9 FL (7.4-10.4); RED CELL DISTRIBUTION WIDTH 14.7 % (11.5-14.5)
[2025-06-17 06:12] LABS: CREATININE 0.96 MG/DL (0.40-0.90); TOTAL CARBON DIOXIDE 25.6 MMOL/L (24-32); eCRCL 46 ML/MIN; eGFR 57 ML/MIN
[2025-06-17 08:00] VITALS: RESP 18
[2025-06-17 10:00] VITALS: BP 119/78; PULSE 67; RESP 15; TEMP 97.7; O2SAT 96
[2025-06-17 10:56] LABS: CHOL/HDL RATIO 2.4 (0.00-4.99); LDL CHOLESTEROL 59 MG/DL (50-100)
--- NOTE | 2025-06-17 12:55 | ELECTROCARDIOGRAPH REPORT ---
[facility] Test Date: 2025-06-17 Test Time: 12:53:37 Pat Name: ERLIN NÚÑEZ Department: [facility] Patient ID: [facility]-[id number] Room: [place] [address] B Gender: F Paramedic Supervisor: MAURICE : 1950 Requested By: LUIS OSCAR Order Number: [id number] Reading MD: Dr. Jain Avila Measurements Intervals [place] Rate: 62 P: 46 [place]: 209 QRS: -33 QRSD: 98 T: 11 QT: 416 QTc: 423 Interpretive Statements Sinus rhythm Inferior infarct, old Electronically Signed On 06-18-2025 13:11:[address] Jani Avila Please click the below link to view image of tracing.
--- NOTE | 2025-06-17 16:23 | PROGRESS NOTE- Residence ---
Progress Note - Resident Providers to CC Resident Creating Document: DARIO BANEGAS RES ~ Antibiotic Timeout Antibiotic Ordered?: Yes If Yes, Indications: UTI Subjective Patient is examined at bed, initially patient was upset in the morning, crying and complaining that she need someone for talk either psychologist or anyperson.Patient also says she has hoarsness of voice and denies cough. Objective Vital Signs Date Time Temp Pulse Resp B/P (MAP) Pulse Ox O2 Delivery O2 Flow Rate FiO2 06/17/25 09:49 67 06/17/25 08:00 18 Room Air 0.0 06/17/25 05:00 110/47 (68) 124/52 (76) 06/17/25 05:00 97.7 92 Result Diagram: 06/17/25 0501 06/17/25 0501 General: Awake and Alert, no acute distress. HEENT: Conjunctiva pink, Sclera clear, Mucus Membranes moist. Neck: Supple without masses and tenderness. Resp: Unlabored. Lungs clear to auscultation bilaterally. Heart: Regular Rate and rhythm, normal S1 and S2 without murmur, rub or gallop. Abdomen: It is soft, non tender, no rigidity,bowel sounds present. Extremities: No cyanosis,clubbing. Skin: Warm and Dry. 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 Strength,right lower extremity 4/5, left lower extremity 4/5 Right upper extremity 5/5, left upper extremity 4/5 Assessment Assessment This is a 75-year-old female known case of hypertension, cerebral palsy, wheel chair bound presented in ER with chief complaint of shortness of breath since 6 days and hoarseness of voice since 3-4 days. Patient is examined at bed, initially patient was upset in the morning, crying and complaining that she need someone for talk either psychologist or anyperson.Patient also says she has hoarsness of voice and denies cough. Plan Plan This is a 75-year-old female known case of hypertension, cerebral palsy, wheel chair bound presented in ER with chief complaint of shortness of breath since 6 days and hoarseness of voice since 3-4 days. Patient is examined at bed, initially patient was upset in the morning, crying and complaining that she need someone for talk either psychologist or anyperson.Patient also says she has hoarsness of voice and denies cough. Patient anxious/Depressed Continue home medication Social Service has been consulted. Urinary Tract Infection UA ordered and is suggestive of UTI Continue IV Rocephin 1 gm Monitor for systemic symptoms. Acute kidney injury, likely due to renal tubular stasis. Creatinine has been improved to is 0.96 Baseline creatinine is 0.66 in 2022 NS 50ml/hr Monitor BMP Acute Deconditioning/Weakness Known case of Cerebral palsy PT consulted, patient may benefit from Rehab. crm campaign manager is aware of it. Hypertension Current BP is normal Home medications include Losartan 50 mg, Metoprolol 25 mg HCTZ 12.5 mg Hypothyroidism Continue levothyroxine 100 mcg once daily. TSH 0.12 Hyperlipidemia Continue home medication Atorvastatin 40 mg once daily. Ordered Lipid panel. Disposition: Most likely discharge tomorrow to Rehab at [facility]. Dario LAM PGY-1 Date of Service: Jun 17, 2025 Billing Provider: XUAN GLASGOW MD Common Visit Codes: [id number] INP/OBS CARE(HIGH) DARIO BANEGAS, RES Jun 17, 2025 16:23 XUAN GLASGOW MD Jun 17, 2025 20:33
[2025-06-17] MEDS: normal saline 1000ml 1,000 ML IV SCH (16:55)
[2025-06-17 18:00] VITALS: BP 105/50; PULSE 76; RESP 16; TEMP 98.1; O2SAT 93
[2025-06-17 20:00] VITALS: RESP 18; O2SAT 96
[2025-06-17 22:00] VITALS: BP 136/64; PULSE 72; RESP 20; TEMP 98.2; O2SAT 92
[2025-06-18 06:13] LABS: MEAN PLATELET VOLUME 8.7 FL (7.4-10.4); RED CELL DISTRIBUTION WIDTH 14.8 % (11.5-14.5)
[2025-06-18 07:01] LABS: CREATININE 0.92 MG/DL (0.40-0.90); TOTAL CARBON DIOXIDE 25.5 MMOL/L (24-32); eCRCL 49 ML/MIN; eGFR 60 ML/MIN
[2025-06-18 07:31] VITALS: BP 115/51; PULSE 67; RESP 18; TEMP 98; O2SAT 92
[2025-06-18 08:00] VITALS: RESP 18
[2025-06-18 08:51] VITALS: BP_SYST 115; PULSE 67
--- NOTE | 2025-06-18 15:25 | DISCHARGE SUMMARY-Residence ---
Discharge Summary Providers to CC Resident Creating Document: DARIO BANEGAS RES ~ Discharge Summary Admission Diagnosis: Generalized weakness/cough/shortness of breath Hospital Course DATE OF ADMISSION: 06/15/2025 DATE OF DISCHARGE:06/18/2025 Labs on Discharge Day. WBC: 10.6 RBC: 3.26 Hemoglobin: 9.3 Platelet count: 361 Creatinine: 0.92 ON 06/15/2025 Troponin: 4 ON 06/15/2025 Pro Bnp: 99 ON 06/16/2025 UA was suggestive of UTI On 06/15/2025 Chest X-RAY 1. No acute intrathoracic process. 2. Large hiatal hernia. Discharge Diagnosis\Comment: UTI/Weakness Acute bronchitis hypertension acute kidney injury hypertension Operations\Procedures: none Consultants: none Complications: none Condition on DC: Stable Discharge Summary: History of Present Illness This is a 75-year-old female known case of hypertension, cerebral palsy, wheel chair bound presented in ER with chief complaint of shortness of breath since 6 days and hoarseness of voice since 3-4 days. She is a poor historian. According to the patient when her caregiver took her to restroom she could not stand from the wheelchair and was short of breath, felt dizzy. She did not have a fall. Patient sleep in a propped up position, denied waking up in middle of night feeling short of breath. In addition to that patient also complains of right leg, right arm pain and she can not raise her right arm and right leg fully since couple of years. Hospital Course This is a 75-year-old female known case of hypertension, cerebral palsy, wheel chair bound. UA was performed in hospital which was suggestive of UTI and patient was started on Rocephin 1 gm IV.Initially patient said shortness of breath and cough in ER but later she said she dont have. Chest X-ray showed No acute intrathoracic process Large hiatal hernia. Pro Bnp and tropnins were normal. Her blood pressure was also high which was managed with HCTZ,metoprolol and losartan. She was evaluated by PT and has been discharged to Rehab. Physical Examination on Discharge. General: Awake and Alert, no acute distress. HEENT: Conjunctiva pink, Sclera clear, Mucus Membranes moist. Neck: Supple without masses and tenderness. Resp: Unlabored. Lungs clear to auscultation bilaterally. Heart: Regular Rate and rhythm, normal S1 and S2 without murmur, rub or gallop. Abdomen: It is soft, non tender, no rigidity,bowel sounds present. Extremities: No cyanosis,clubbing. Skin: Warm and Dry. 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 Strength,right lower extremity 4/5, left lower extremity 4/5 Right upper extremity 5/5, left upper extremity 4/5 Vitals on Discharge on Day Date Time Temp Pulse Resp B/P (MAP) Pulse Ox O2 Delivery O2 Flow Rate FiO2 06/18/25 08:51 67 06/18/25 08:00 18 Room Air 0.0 06/18/25 07:31 98.0 115/51 (72) 92 Discharge Medications Acetaminophen 500 mg 2 tablet PO HS Aldendronate Sodium 35 mg tablet 1 Tab PO Q7D 28 days Atorvastatin Calcium 40 mg 1 tab po daily Bupropion hcl 150 mg (Bupropion XL) 1 tablet PO daily Cholecalciferol(Vitamin D3) 25 Mcg tablet 1 tab po daily Docusate Sodium 250 mg capsule (Col -rite) 250 mg po daily Gabapentin 600 mg daily 1 tab Q8h 30 days Hydrochlorothiazide 12.5 mg 1 tab po daily Levothyroxine 100 mcg tablet 1 tablet po daily Loperamide Hcl 2mg capsule 2 cap PO Q6h 5 days Losartan Potassium 50 mg tablet 1 Tab PO daily Melatonin 10 mg capsule 3 cap PO HS 30 days Metoprolol tartrate 25 mg (lopressor) 1 tab po daily 30 days. Omeprazole 20 mg 1 cap PO daily 30 days Ondasetron 8 mg (Ondasetron ODT) 1 tab PO 6 hrs Oxybutynin Chloride 5 mg tablet 1 tab po daily Trazadone 50 mg tablet 1 Tab PO hs Potassium Chloride 8 meq capsule (slow-k 8 meq) 1 cap daily PO for 30 days. Discharge Instructions -follow up with PCP in 2 weeks. -take adequate fluids -continue your home medications -Continue physical therapy -Call 911 if you have any emergency. *Problems/Diagnosis: (1) Urinary tract infection Status: Resolved (2) Weakness Status: Chronic (3) Hypertension Status: Resolved Total Time Spent on D/C: > 30 Minutes Date of Service: Jun 18, 2025 Billing Provider: XUAN GLASGOW MD Common Visit Codes: 74921-RZH/OBS DISCH DAY >30min DARIO BANEGAS RES Jun 18, 2025 15:24 XUAN GLASGOW MD Jun 18, 2025 22:42
== END 2025-06-18 15:10 | DRG 690 ==
LOC: ER 12:57 → ED HOLD 15:54 → OBSVTOIN 15:54 → SUR 3N 18:45
PROVIDERS: ADMIT Internal Medicine; ATTEND Internal Medicine
DX: N39.0 Urinary tract infection, site not specified (principal); N17.9 Acute kidney failure, unspecified; J20.9 Acute bronchitis, unspecified; E78.00 Pure hypercholesterolemia, unspecified; I10 Essential (primary) hypertension; M81.0 Age-related osteoporosis without current pathological fracture; E03.9 Hypothyroidism, unspecified; D64.9 Anemia, unspecified; K21.9 Gastro-esophageal reflux disease without esophagitis; G80.9 Cerebral palsy, unspecified; E78.5 Hyperlipidemia, unspecified; M25.511 Pain in right shoulder; F32.A Depression, unspecified; Z79.899 Other long term (current) drug therapy; Z90.710 Acquired absence of both cervix and uterus; Z88.8 Allergy status to other drugs, medicaments and biological substances; Z99.3 Dependence on wheelchair; Z87.891 Personal history of nicotine dependence
CPT/HCPCS: 36415; 71045; 80048; 80061; 81001; 83735; 83880; 84443; 84484; 85025; 87077; 87081; 87088; 87186; 93005; 97161; 97530; 99285; G0378; J0696; J1644

== ENCOUNTER 2025-10-05 16:06 | Inpatient (IN) | payer OTHER, BC ==
[~2025-10-05] VITALS: Ht 165.1 cm; Wt 73.0 kg
[2025-10-05 16:32] LABS: MEAN PLATELET VOLUME 8.2 FL (7.4-10.4); RED CELL DISTRIBUTION WIDTH 16.1 % (11.5-14.5)
--- NOTE | 2025-10-05 16:32 | Physician Documentation ---
History of Present Illness General Stated Complaint: VOMITING Time Seen by MD: 16:16 Primary Medical Doctor: Lori Donnelly History of Present Illness Initial Comments 75-year-old female brought in by EMS for nausea and vomiting abdominal pain and shortness of breath over last seven days. The patient has been confused per family for about the same amount of time. No documented fever, the patient has been complaining of epigastric abdominal pain has been states he has she has been throwing up coffee-ground emesis and had dark stools. The patient's symptoms are moderate and persistent. The patient is unable to provide any additional history. History was obtained by the has been an EMS Medication Reconciliation Allergies: Uncoded Allergies: DIPHENHYDRAMINE (Allergy, Unknown, 06/15/25) Scheduled Atorvastatin Calcium* (Lipitor*), 40 MG PO DAILY, (Reported) Bupropion HCl (Bupropion Xl), 1 TABLET PO DAILY, (Reported) Cholecalciferol (Vitamin D), 1 CAP PO DAILY, (Reported) Cholecalciferol (Vitamin D3) (Vitamin D3), 1 TAB PO DAILY, (Reported) Docusate Sodium (Col-Rite), 250 MG PO DAILY, (Reported) Gabapentin (Gabapentin), 1 TAB PO Q8H, (Reported) Levothyroxine Sodium (Levothyroxine Sodium), 1 TAB PO DAILY, (Reported) Melatonin (Melatonin), 3 CAP PO HS, (Reported) Meloxicam (Meloxicam), 1 TAB PO HS, (Reported) Omeprazole (Omeprazole), 1 CAP PO DAILY, (Reported) Scheduled PRN Acetaminophen (Tylenol Extra Strength), 2 TABLET PO HS PRN for pain, (Reported) Discontinued Medications Alendronate Sodium (Alendronate Sodium), 1 TAB PO Q7D, (Reported) Discontinued Reason: patient no longer taking Levothyroxine Sodium (Levothyroxine Sodium), 100 MCG PO DAILY, (Reported) Discontinued Reason: Prescription changed Loperamide Hcl (Loperamide), 2 CAP PO Q6H Discontinued Reason: patient no longer taking Losartan Potassium (Losartan Potassium), 1 TAB PO DAILY, (Reported) Discontinued Reason: patient no longer taking Meloxicam* (Meloxicam*), 1 TAB PO DAILY Discontinued Reason: patient no longer taking Metoprolol Tartrate* (Lopressor*), 12.5 MG PO DAILY, (Reported) Discontinued Reason: patient no longer taking Ondansetron 8mg ODT (Ondansetron Odt), 1 TAB PO Q6H Discontinued Reason: patient no longer taking Oxybutynin Chloride (Oxybutynin Chloride), 1 TAB PO DAILY, (Reported) Discontinued Reason: patient no longer taking Oxybutynin Chloride (Oxybutynin Chloride), 1 TAB PO Q12H, (Reported) Discontinued Reason: patient no longer taking Potassium Chloride 8 MEQ* (Slow-K 8 Meq*), 1 CAP PO DAILY, (Reported) Discontinued Reason: patient no longer taking Trazodone HCl (Trazodone HCl), 1 TAB PO HS, (Reported) Discontinued Reason: patient no longer taking Past Medical History Past Medical History: High Cholesterol, Hypertension, GERD, GI Bleed, Anemia, Hypothyroidism, Osteoporosis, *PSYCH* Past Surgical History: hysterectomy, orthopedic surgeries, other Smoking: Non-Smoker Alcohol Use: Rarely Drug Use: none Lives with: S/O Lives In: Home Occupation: retired Review of Systems Unable to obtain complete ROS: altered mental status Physical Exam Physical Exam Physical Exam VITALS: Reviewed and as above. GENERAL: Alert, mild distress secondary to pain covered with coffee-ground emesis HEENT: Normocephalic, atraumatic, PERRL, EOMI, dry mucosa, no erythema RESPIRATORY: Diminished breath sounds bilaterally CHEST: No accessory muscle use, no retractions CV: Tachycardic rate, rhythm, no edema, no murmur, No: JVD GI: Epigastric tenderness, non-tender, bowels sounds present, no rebound, guarding, or rigidity BACK: No CVA tenderness, or swelling MUSCULOSKELETAL: No deformities, no edema SKIN: Warm and dry, no rash NEURO: Oriented x1, No motor or sensory deficit the patient is not oriented to place or time of day PSYCH: Anxious mood and affect Progress Results/Orders Results/Orders Orders - OHLFSZENA MD Electrocardiogram (10/05/25 16:40) Culture Blood (10/05/25 16:40) Chest,Single View (10/05/25 16:40) Ct Abdomen Pelvis (10/05/25 17:06) Ct Head (10/05/25 ) Page Hospitalist (10/05/25 ) Completed Orders - OHLFSZENA MD Cbc/Diff (10/05/25 16:16) Normal Saline 1000ml (0.9% Sodium Chlori (10/05/25 16:20) CMP (10/05/25 16:16) Lipase (10/05/25 16:16) Procalcitonin (10/05/25 16:16) Electrocardiogram (10/05/25 16:40) Chest,Single View (10/05/25 16:40) Lacticsepsis (10/05/25 16:40) Pantoprazole 40mg/Ns 100ml Bag (Protonix (10/05/25 16:50) Pantoprazole 40mg Iv (Protonix 40mg Iv) (10/05/25 16:50) Hs Troponin I W Calculations (10/05/25 16:52) Piperacillin/Tazo 3.375gm/50ml (Zosyn 3. (10/05/25 17:00) MG (10/05/25 16:22) Ct Abdomen Pelvis (10/05/25 17:06) Ct Head (10/05/25 ) Piperacillin/Tazo 3.375gm/50ml (Zosyn 3. (10/05/25 18:35) Hgb A1c (10/05/25 16:22) Vital Signs 10/05/25 10/05/25 10/05/25 10/05/25 16:28 16:44 18:31 18:34 Temp 97.5 98.4 Pulse 116 111 Resp 15 19 15 15 B/P (MAP) 149/90 151/82 (105) Pulse Ox 96 97 10/05/25 10/05/25 10/05/25 18:46 19:45 20:45 Pulse 103 105 102 Resp 17 18 16 B/P (MAP) 128/80 (96) 142/87 (105) 140/84 (102) Pulse Ox 98 97 96 Laboratory Tests Test 10/05/25 16:22 White Blood Count 19.7 H Red Blood Count 4.31 Hemoglobin 11.1 L Hematocrit 34.5 L Mean Corpuscular Volume 80.0 Mean Corpuscular Hemoglobin 25.8 L Mean Corpuscular Hemoglobin Concent 32.2 L Red Cell Distribution Width 16.1 H Platelet Count 634 H Mean Platelet Volume 8.2 Neutrophils (%) (Auto) 79.3 H Lymphocytes (%) (Auto) 12.2 L Monocytes (%) (Auto) 7.7 Eosinophils (%) (Auto) 0.1 Basophils (%) (Auto) 0.7 Neutrophils # (Auto) 15.6 H Lymphocytes # (Auto) 2.4 Monocytes # (Auto) 1.5 H Eosinophils # (Auto) 0.0 Basophils # (Auto) 0.1 CBC Comment Sodium Level 139 Potassium Level 3.5 Chloride Level 102 Carbon Dioxide Level 22.9 L Anion Gap 14 Blood Urea Nitrogen 20 H Creatinine 1.01 H Estimated GFR/1.73 m2 53 BUN/Creatinine Ratio 19.8 Glucose Level 126 H Hemoglobin A1c 5.6 Lactic Acid Level 2.0 Calcium Level 9.4 Magnesium Level 1.5 Total Bilirubin 0.7 Aspartate Amino Transf (AST/SGOT) 17 Alanine Aminotransferase (ALT/SGPT) 11 L Alkaline Phosphatase 94 Troponin I High Sensitivity 16 Total Protein 7.7 Albumin 3.3 L Globulin 4.4 H Albumin/Globulin Ratio 0.8 L Lipase 19 Procalcitonin < 0.05 Chemistry Comments Microbiology Date/Time Source Procedure Growth Status 10/05/25 17:07 Blood Iv Start Blood Culture - Preliminary NO GROWTH AFTER 3 DAYS Resulted EKG/XRAY/CT/US/VASC/MRI EKG : Additional Comment Patient: ERLIN NÚÑEZ Medical Record: [id number] ELIZABETH HEBRON : 1950, Age: 75 Sex: Female Location: ER Patient Status: REG ER Service Date/Time: 10/05/251639 Ordering Physician: ZENA CHAUDHARY MD Exam: CHEST,SINGLE VIEW CLINICAL HISTORY: SEPSIS TECHNIQUE: Single view of the chest was obtained. COMPARISON: DI CHEST,SINGLE VIEW on DOS: 06/15/25, CHEST,SINGLE VIEW on DOS: 12/12/22, CT CHEST ABDOMEN PELVIS on DOS: 09/24/22, CHEST,SINGLE VIEW on DOS: 09/23/22, CHEST,SINGLE VIEW on DOS: 11/14/19 FINDINGS: The heart size and pulmonary vasculature are normal. There is a left basilar opacity. There are epidural pain catheter leads. There is a large hiatal hernia. IMPRESSION: Large hiatal hernia with left basilar opacity, favor atelectasis/ small pleural effusion. Electronically Signed by:CHEVY AVILA MD Date & Time: 10/05/251707 Dictated by: CHEVY AVILA MD Dictation date and time: 10/05/251707 Primary Care Provider: NO PRIMARY CARE PROVIDER cc: ZENA CHAUDHARY MD ~ Medical Decision Making Additional information obtaine: old records Findings The patient has multiple complaints to include abdominal pain, patient was also found to have coffee-ground emesis on her shirt the the patient is guaiac was brown heme-negative stool. Given the patient's abdominal pain has a as possible coffee-ground emesis the patient will be admitted to the hospitalist for further evaluation. Prior hospitalizations has been reviewed the patient's pulse oximetry was interpreted as normal and adequate and her radiographer cardiac catheterization was interpreted as a sinus rhythm. Differential Diagnosis Cardiac ischemia, gastritis, esophagitis, upper GI bleed Departure Admitted to Inpatient Unit: yes, to hospitalist Impression: Primary Impression: Abdominal pain Qualified Codes: R10.11 - Right upper quadrant pain Additional Impressions: Hypokalemia Anemia Referrals: NO PRIMARY CARE PROVIDER (PCP) Signature Scribe Signature: No scribe Attestation: The note accurately reflects work and decisions made by me.Zena Chaudhary MD 10/09/25 08:09 ZENA CHAUDHARY MD Oct 05, 2025 16:32
[2025-10-05 16:47] LABS: CREATININE 1.01 MG/DL (0.40-0.90); TOTAL CARBON DIOXIDE 22.9 MMOL/L (24-32); eCRCL 43 ML/MIN; eGFR 53 ML/MIN
--- NOTE | 2025-10-05 16:51 | ELECTROCARDIOGRAPH REPORT ---
[facility] Test Date: 2025-10-05 Test Time: 16:48:37 Pat Name: ERLIN NÚÑEZ Department: [facility]-ER Patient ID: 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 Reading MD: Dr. MARY ANN Olmedo Measurements Intervals [place] Rate: 103 P: 3 AR: 162 QRS: -54 QRSD: 93 T: 22 QT: 369 QTc: 483 Interpretive Statements Sinus tachycardia Abnormal R-wave progression, late transition Inferior infarct, old Electronically Signed On 10-08-2025 15:14:[address] MARY ANN Olmedo Please click the below link to view image of tracing.
[2025-10-05] MEDS: normal saline 1000ML IV soln IVB ONE (17:10)
--- NOTE | 2025-10-05 17:11 | RADIOLOGY REPORT ---
CLINICAL HISTORY: SEPSIS TECHNIQUE: Single view of the chest was obtained. COMPARISON: DI CHEST,SINGLE VIEW on DOS: 06/15/25, CHEST,SINGLE VIEW on DOS: 12/12/22, CT CHEST ABDOMEN PELVIS on DOS: 09/24/22, CHEST,SINGLE VIEW on DOS: 09/23/22, CHEST,SINGLE VIEW on DOS: 11/14/19 FINDINGS: The heart size and pulmonary vasculature are normal. There is a left basilar opacity. There are epidural pain catheter leads. There is a large hiatal hernia. IMPRESSION: Large hiatal hernia with left basilar opacity, favor atelectasis/ small pleural effusion.
[2025-10-05] MEDS: piperacillin/tazo 3.375gm/50ml 50 ML IV ONE (17:13)
--- NOTE | 2025-10-05 17:41 | RADIOLOGY REPORT ---
CT CT HEAD Indication: altered EXAM DATE: 10/05/2025 05:12 PM COMPARISON: None TECHNIQUE: CT of the head without intravenous contrast. RADIATION DOSE: CTDIvol: 56 mGy, DLP: 1919 mGy*cm FINDINGS: There is no intracranial hemorrhage. There is no extra-axial fluid, mass, mass effect or midline shift. The ventricles are midline and normal in size. Basilar cisterns are patent. Mild periventricular and subcortical white matter chronic microvascular ischemic changes. Mild global cerebral volume loss. The paranasal sinuses and mastoids are well-pneumatized. Imaged portion of the orbits are unremarkable. IMPRESSION: No intracranial hemorrhage or mass effect. Mild chronic microvascular ischemic changes. Mild global cerebral volume loss.
--- NOTE | 2025-10-05 17:45 | RADIOLOGY REPORT ---
CLINICAL HISTORY: abd pain altered TECHNIQUE: CT of the abdomen and pelvis was performed without IV contrast. This exam was performed according to our departmental dose optimization program. Up-to-date CT equipment and radiation dose reduction techniques are utilized as appropriate. CTDI 27 DLP 1320 COMPARISON: ABDOMEN,SINGLE VIEW(KUB) on DOS: 10/27/22, CT CHEST ABDOMEN PELVIS on DOS: 09/24/22, ABDOMEN,SINGLE VIEW(KUB) on DOS: 09/23/22 FINDINGS: Abdomen/Pelvis: The spleen, adrenal glands, liver, gallbladder, right kidney, and uterus are grossly unremarkable. The pancreas demonstrates [id number] parenchymal atrophy. A hypodense left renal lesion is incompletely characterized due to lack of IV contrast. The bladder is not well distended and therefore not well evaluated. The abdominal aorta is normal in course and caliber. There are mild aortic atherosclerotic calcifications. There is no free intraperitoneal air or fluid. There is no enlarged abdominal pelvic lymph node. There is no bowel wall thickening or dilatation. The appendix is normal. There is colonic diverticulosis, moderate to advanced at the sigmoid segment. Other: The imaged lower thorax demonstrates a large hiatal hernia containing the proximal stomach. There are coronary artery calcifications. There is mild linear atelectasis at both lung bases. There is a trace pericardial effusion. No acute osseous abnormality is evident. Is a mild chronic L1 vertebral body compression fracture. Impression: No acute noncontrast CT abnormality in the abdomen / pelvis. Large hiatal hernia containing the proximal stomach. Moderate to advanced sigmoid colon diverticulosis.
[2025-10-05] MEDS: pantoprazole 40MG/NS 100ML BAG 100 ML IV ONE (18:04)
[2025-10-05] MEDS: piperacillin/tazo 3.375gm/50ml 50 ML IV SCH (18:38)
[2025-10-05] MEDS: fentaNYL/PF 50MCG/1 ML 2ML syringe IV ONE (21:26)
[2025-10-05] MEDS: ondansetron/PF 4mg/2ml inj IV ONE (21:26)
[2025-10-05] MEDS ORDERED: FURO-150 PO (21:59)
[2025-10-05] MEDS ORDERED: CHOL10006 PO (21:59)
[2025-10-05] MEDS ORDERED: OXYB5TAB21 PO (21:59)
[2025-10-05] MEDS ORDERED: LEVO75TA7 PO (21:59)
--- NOTE | 2025-10-05 22:23 | HISTORY AND PHYSICAL-Residence ---
History & Physical Providers to CC Resident Creating Document: EMIL SANCHEZ BANEGAS, RES ~ History of Present Illness Primary Medical Doctor: Lori Donnelly Reason for Admit\Complaint: Nausea, vomiting and diarrhea History of Present Illness A 75 years old female with history of baseline dementia, cerebral palsy, wheelchair-bound, diverticulitis, GERD, insomnia, Hypertension, Urinary and Stool Incontinence, Hypothyroidism, Hyperlipidemia, chronic pain syndrome admitted with nausea, vomiting and diarrhea. Patient is alert, awake, oriented to time place and person. Patient is very poor historian and she has dementia. Patient reports that she has nausea, multiple episodes of watery- vomiting and loose watery non foul-smelling diarrhea from the last 7 days. In the hospital, patient has no episodes of vomiting or diarrhea, dark color stools. Patient denies any abdominal pain, shortness of breath, abdominal distention, chest pain, lightheadedness, acid reflux, dyspepsia, altered level of consciousness, fever, chills, blood in vomit and dark stools. Patient denies any recent falls or injuries. In addition to that patient also complains of pain in both leg, right arm and she can not raise her right arm and right leg fully since couple of years. As per ED physician: 75-year-old female brought in by EMS for nausea and vomiting abdominal pain and shortness of breath over last seven days. The patient has been confused per family for about the same amount of time. No documented fever, the patient has been complaining of epigastric abdominal pain has been states he has she has been throwing up coffee-ground emesis and had dark stools. The patient's symptoms are moderate and persistent. The patient is unable to provide any additional history. History was obtained by the has been an EMS. Allergies: Uncoded Allergies: DIPHENHYDRAMINE (Allergy, Unknown, 06/15/25) Home Medications Home Medications Active Meloxicam* (Meloxicam) 7.5 Mg Tablet 1 Tab PO DAILY 30 Days Loperamide (Loperamide Hcl) 2 Mg Capsule 2 Cap PO Q6H 5 Days Ondansetron Odt (Ondansetron HCl) 8 Mg Tab.rapdis 1 Tab PO Q6H Reported Oxybutynin Chloride 5 Mg Tablet 1 Tab PO Q12H 30 Days Vitamin D (Cholecalciferol) 1,000 Unit Capsule 1 Cap PO DAILY 30 Days Lasix (Furosemide) 20 Mg Tablet 1 Tab PO DAILY 30 Days Levothyroxine Sodium 75 Mcg Tablet 1 Tab PO DAILY 30 Days Vitamin D3 (Cholecalciferol (Vitamin D3)) 25 Mcg Tablet 1 Tab PO DAILY Trazodone HCl 50 Mg Tablet 1 Tab PO HS Losartan Potassium 50 Mg Tablet 1 Tab PO DAILY PT UNSURE IF STARTED TAKING THIS MEDICATION Oxybutynin Chloride 5 Mg Tablet 1 Tab PO DAILY Slow-K 8 Meq* (Potassium Chloride) 8 Meq Capsule.sa 1 Cap PO DAILY 30 Days Omeprazole 20 Mg Capsule.dr 1 Cap PO DAILY 30 Days Melatonin 10 Mg Capsule 3 Cap PO HS 30 Days Meloxicam 15 Mg Tablet 1 Tab PO HS 30 Days Tylenol Extra Strength (Acetaminophen) 500 Mg Tablet 2 Tablet PO HS Col-Rite (Docusate Sodium) 250 Mg Capsule 250 Mg PO DAILY Bupropion Xl (Bupropion HCl) 150 Mg Tab.er.24h 1 Tablet PO DAILY Alendronate Sodium 35 Mg Tablet 1 Tab PO Q7D 28 Days Gabapentin 600 Mg Tablet 1 Tab PO Q8H 30 Days Hydrochlorothiazide 12.5 Mg Tablet 1 Tab PO DAILY Lopressor* (Metoprolol Tartrate) 25 Mg Tablet 12.5 Mg PO DAILY Hold if systolic blood pressure less than 100 or heart rate less than 60 Lipitor* (Atorvastatin Calcium) 40 Mg Tablet 40 Mg PO DAILY Past Medical History Past Medical History Patient has baseline dementia , unable to obtain pmh, pmh from previous admissions Baseline dementia Cerebral palsy Wheelchair-bound Diverticulitis GERD Hypertension Urinary and Stool Incontinence Hypothyroidism Hyperlipidemia Chronic pain syndrome Insomnia Past Surgical History Surgical History Comment Hysterectomy Knee Replacement Past Social History Social History Comment Patient quit smoking in 1970 before that she used to smoke 2 ciggrates daily. Previously patient use to 2 alcholic drinks per day and does not remember when she quit it. No illicit drug abuse. She lives in home with her partner. She has a caregiver. She is wheelchair bound. Smoking: Non-Smoker Alcohol Use: Rarely Drug Use: None Lives with: S/O Lives In: Home Occupation: retired ROS ROS Constitutional: Reports generalized weakness, No fever, chills, dizziness, weight gain or loss, night sweats Eyes: No pain, erythema, discharge, blurring of vision ENT: No sore throat, epistaxis, tinnitus Cardiovascular:No chest pain, palpitations, syncope, lower extremity edema, paroxysmal nocturnal dyspnea Respiratory: No Shortness of breath and cough, No hemoptysis. Gastrointestinal: Reports nausea, vomiting and diarrhea No Abdominal pain and melena. Normal appetite. No constipation,diarrhea, hematemesis, Musculoskeletal: No swelling or edema of extremities. Integumentary: No change in skin, hair, nails. No swelling, bruising, abrasions Neurologic: No weakness,No headache, neck pain, numbness or tingling of the extremities, Psychiatric: No delusions, depression, loss of interest in normal activity or change in sleep pattern, hallucinations, suicidal ideations Endocrine: No fatigue, no weakness. polydipsia, polyuria, change in appetite, heat or cold intolerance, sweating, dry skin Hematological: No bleeding, petechiae, bruising Allergies: No asthma or urticaria Unable to obtain: altered mental status, other Exam Vitals: Vital Signs Date Time Temp Pulse Resp B/P (MAP) Pulse Ox O2 Delivery O2 Flow Rate FiO2 10/05/25 21:45 105 16 144/79 (100) 96 10/05/25 16:44 98.4 General: Awake , alert and oriented to time,place, person, not in distress HEENT: Atraumatic, normocephalic, PERRLA, EOMI, anicteric sclera ; pink conjunctiva, moist mucos membranes Neck: Trachea midline. Supple, normal range of motion, no JVD, no lymphadenopathy Chest and Respiratory: Mildly decreased breath sounds bilaterally, no tachypnea, wheezing, ronchi,rubs .Chest wall is symmetric and without deformity. Cardiac: S1, S2 heard, tachycardic and regular rhythm, no murmurs ,no gallops, no rubs. Abdomen: Soft, No tenderness, No guarding or rigidity, Umanzor's sign negative. normal bowel sounds x4 quadrant, no hepatosplenomegaly MSK: Range of motion of all extremities are normal. There is no joint pain or joint swelling or joint erythema. There is no muscle pain or tenderness or swelling. Extremities: warm, well-perfused, No cyanosis, clubbing, 2+ pulses felt Neurological: Mental status exam: alert and consciousness, orientation, memory, speech - Cranial nerve test: Cranial nerves II-XII intact. - Motor system: Normal Nutrition, normal tone, no involuntary movements Right lower extremity 4/5, left lower extremity 4/5 Right upper extremity 4/5, left upper extremity 4/5 - Sensory system: Intact - Reflex testing: Biceps, triceps and knee reflexes 2+ - Cerebellar: Normal Skin: Warm and dry Psychiatry: Affect and mood are normal Diagnostic Data Last Recorded Lab Results: 10/05/25 1622 10/05/25 1622 Advance Care Planning Advanced Care plannin - 30 Minutes (I spent a total of 17 minutes on reviewing various resuscitative measures/ACP with the patient at the time of admission. The patient has decided on full code status) Additional Plan Gastroenteritis likely bacterial White count is 19.7, lactate is 2.0 Follow up on blood culture IV Rocephin 1 g daily IV flagyl 500 mg Q8H Follow up on stool studies(culture, chun strain, ova and parasites ) Received IV NS 2 L in the ER IV NS at the rate of 100ml/hr Possible GI bleed Hx of GERD History of diverticulitis CT abd shows Large hiatal hernia containing the proximal stomach. Moderate to advanced sigmoid colon diverticulosis. H&H are 11.1/34.5, MCV 80.0 Monitor H&H q.8h Transfuse PRBC if Hgb is < 7 IV Protonix 40 mg q.12h Follow up on iron studies Follow up on stool occult blood Clear liquid diet Mild SMITA, likely prerenal due to dehydration Current creatinine is 1.1, BUN is 20, GFR is 50 Follow up on urine lytes Monitor BMP levels Received IV NS 2 L in the ER IV NS at the rate of 100ml/hr Hypokalemia Potassium of 3.1 Replacement per protocol Hypertension Blood pressure 153/83 Continue home medication after med rec BNP is 1001 Follow up on echocardiogram Continue telemetry monitoring Chronic pain syndrome Wheelchair-bound Hx of Cerebral palsy Patient has pain bilateral lower limbs Wells score is 0 for DVT and 1.5 for PE, less likely, ruled out pulmonary embolism D-dimer is 4.45 Follow up on venous ultrasound Baseline Dementia CT head shows No bleed.Mild chronic microvascular ischemic changes.Mild global cerebral volume loss. Hypothyroidism Follow up on TSH level Home med after med rec Hyperlipidemia LDL is 59 on 08/17 Continue home med after med rec Pending home med reconciliation Follow up on urine analysis, U tox if no urine output, do bedside ultrasound and straight cath Code status: Full code DVT prophylaxis : Scds GI prophylaxis: IV Protonix Nutrition: Clear liquid diet, advance diet based on the lab results/if no bleed. Physical therapy: ordered Line/tube: PIV Analgesia/sedation: Morphine/[place] Disposition: Continue IV antibiotics, follow up on stool studies, monitor H&H. Consult GI in the A.M based on the lab results. Resident attestation The above note has been reviewed and supervised by a senior resident PGY2/PGY3 Patient was seen, examined and discussed with the attending physician Chris Sanchez MD Internal Medicine Resident, PGY 1 I saw and discussed the patient with the resident team I agree with assessment and plan as documented Date of Service: Oct 05, 2025 Billing Provider: ADAM BEASLEY MD, SUNIL KUMAR, RES Oct 05, 2025 22:23 ADAM BEASLEY MD Oct 06, 2025 07:19
[2025-10-05] MEDS ORDERED: potassium Cl 40MEQ/1/2NS 520ml 520 ML IV PRN (22:25)
[2025-10-05] MEDS ORDERED: potassium Cl 20 mEq SR tablet PO PRN ×2 (22:25)
[2025-10-05] MEDS ORDERED: magnesium sulf-water 4G/100mL 100 ML IV PRN (22:25)
[2025-10-05] MEDS ORDERED: mag hydrox/Alum hydrox/simeth 30ml oral suspension PO PRN (22:25)
[2025-10-05] MEDS ORDERED: magnesium Cl slow-release 64mg tablet PO PRN (22:25)
[2025-10-05] MEDS ORDERED: magnesium hydroxide 30ml (MOM) UD suspension PO PRN (22:25)
[2025-10-05] MEDS ORDERED: magnesium sulf-water 2g/50mL 50 ML IV PRN (22:25)
[2025-10-05 23:00] VITALS: RESP 18; O2SAT 96
[2025-10-05 23:05] LABS: APTT 26 SECONDS (22-32); INR 1.1 INR
[2025-10-05 23:09] LABS: CREATININE 1.00 MG/DL (0.40-0.90); PHOSPHORUS 2.6 MG/DL (2.3-4.5); PRO BRAIN NATRIURETIC PEPTIDE 1001 PG/ML (0-450); TOTAL CARBON DIOXIDE 26.2 MMOL/L (24-32); eCRCL 44 ML/MIN; eGFR 54 ML/MIN
[2025-10-05] MEDS ORDERED: azithromycin/NS 500mg/250ml 250 ML IV SCH (23:25)
[2025-10-05] MEDS: normal saline 1000ml 1,000 ML IV ONE (23:52)
[2025-10-06] MEDS: normal saline 1000ml 1,000 ML IV SCH (01:13)
[2025-10-06] MEDS: CefTRIAXone/D5W-Rocephin 1gm 50 ML IV SCH (01:13)
[2025-10-06 01:59] LABS: INFLUENZA TYPE A ANTIGEN RAPID NEGATIVE (Negative); INFLUENZA TYPE B ANTIGEN RAPID NEGATIVE (Negative)
[2025-10-06] MEDS ORDERED: POTASSIUM CHLORIDE 20 MEQ/15 ML oral solution PO PRN (02:00)
[2025-10-06] MEDS: POTASSIUM CHLORIDE 20 MEQ/15 ML oral solution PO PRN (02:14)
[2025-10-06 06:00] VITALS: BP 127/63; PULSE 100; RESP 16; TEMP 98.5; O2SAT 94
[2025-10-06 06:11] LABS: MEAN PLATELET VOLUME 8.3 FL (7.4-10.4); RED CELL DISTRIBUTION WIDTH 16.9 % (11.5-14.5)
[2025-10-06 06:37] LABS: CREATININE 0.78 MG/DL (0.40-0.90); TOTAL CARBON DIOXIDE 23.4 MMOL/L (24-32); eCRCL 56 ML/MIN; eGFR 72 ML/MIN
[2025-10-06 06:40] LABS: OSMOLALITY 286 MOSM/K (280-300)
[2025-10-06 06:43] LABS: % IRON SATURATION 18 % (11-46)
[2025-10-06] MEDS: metroNIDAZOLE-Flagyl 500mg/NS 100 ML IV SCH (07:49)
[2025-10-06] MEDS: docusate sod 100mg capsule PO SCH (07:49)
[2025-10-06 08:00] VITALS: RESP 16; O2SAT 94
[2025-10-06] MEDS: K and/or MAG REPLACEMENT MC SCH (08:00)
[2025-10-06 10:00] VITALS: BP_SYST 139; BP_SYST 140; BP_DIAS 58; BP_DIAS 84; PULSE 103; RESP 18; TEMP 98.8; O2SAT 94
[2025-10-06 10:24] LABS: MEAN PLATELET VOLUME 8.4 FL (7.4-10.4); RED CELL DISTRIBUTION WIDTH 16.5 % (11.5-14.5)
--- NOTE | 2025-10-06 10:25 | PROGRESS NOTE ---
Daily Progress Note Providers to CC Patient is feeling Better today, ~, resting comfortably in the bed Central Line/PICC still needed: No Castellanos-Non Protocol Castellanos Indications Met/Not Met: F/C Indications Not Met Antibiotic Timeout Antibiotic Ordered?: Yes MRSA Education MRSA Education Provided to pt: Yes Subjective As above Objective Vital Signs Date Time Temp Pulse Resp B/P (MAP) Pulse Ox O2 Delivery O2 Flow Rate FiO2 10/06/25 06:00 98.5 100 16 127/63 (84) 94 Room Air Vital signs, stable ,afebrile. Pulse Oximetry reflects adequate oxygenation. BMI is General: well developed, well nourished. Awake , alert, and oriented x4, resting comfortably in the bed, in no acute distress . Skin: Warm, dry, no pallor, no rash or petechiae. HEENT: Atraumatic, normocephalic, EOMI, anicteric sclera B; pink conjunctiva; PERRLA, normal oropharynx, moist oral and nasal mucosa. Tympanic membrane , nose , throat clear. Neck: Trachea midline. Supple, full range of motion, no JVD, bruit , hepatojugular reflex , lymphadenopathy or masses, or other lesions Cardiac: Regular rhythm, regular rate no murmurs, rubs, or gallops. Normal S1 and S2, no S3 noticed. PMI is normal. Respiratory: Equal breath sounds bilaterally, no tachypnea; lungs clear to auscultation bilaterally, no wheezing ,rub or rales, or crackles. Chest wall is symmetric and without deformity. No signs of trauma. Chest wall is nontender. No signs of respiratory distress. Resonance is normal upon percussion bilaterally. Gastrointestinal: Abdomen symmetric, non-distended, soft, non-tender, normal bowel sounds x4 quadrant, normoactive, no hepatosplenomegaly , no masses , no bruit, no flank pain bilaterally. No voluntary guarding, rebound, or rigidity. No tenderness to percussion. No pulsatile masses. Equal femoral pulses. No Umanzor's sign or McBurney point tenderness. Back; no CVA tenderness bilaterally, no deformities. Neck and back are without deformity as well. No tenderness noted on palpation of the spinous processes. Spinous processes are midline. Cervical, thoracic, and lumbar paraspinal muscles are not tender and are without spasm. Musculoskeletal: Extremities, normal range of motion, non-tender, muscle strength 5/5 x 4. Negative Homans signs bilaterally on lower extremity. Distal pulses full symmetrical, no clubbing, cyanosis , edema. Neurological: Speech is clear, alert, and oriented x 4. No motor or sensory deficit, deep tendon reflexes normal, cerebellar intact. Cranial nerves II-XII intact. Psych: Alert and or appropriate, normal affect. Vascular: Good distal pulses, which are equal x4; capillary refill less than 2 seconds. Lymphatic, no lymphadenopathy. Result Diagram: 10/06/2552610/06/25526 Coagulation Studies Laboratory Tests Test 10/05/25 22:39 Prothrombin Time 11.4 SECONDS (9.0-12.0) INR International Normalized Ratio 1.1 INR Activated Partial Thromboplast Time 26 SECONDS (22-32) D-Dimer 4.45 MG/L FEU (0-0.50) H D-Dimer Comment Coagulation Comments Problem\Assessment\Plan Plan Gastroenteritis likely bacterial White count is 19.7, lactate is 2.0 Follow up on blood culture IV Rocephin 1 g daily IV flagyl 500 mg Q8H Follow up on stool studies(culture, chun strain, ova and parasites ) Received IV NS 2 L in the ER IV NS at the rate of 100ml/hr Possible GI bleed Hx of GERD History of diverticulitis CT abd shows Large hiatal hernia containing the proximal stomach. Moderate to advanced sigmoid colon diverticulosis. H&H are 11.1/34.5, MCV 80.0 Monitor H&H q.8h Transfuse PRBC if Hgb is < 7 IV Protonix 40 mg q.12h Follow up on iron studies Follow up on stool occult blood Clear liquid diet Mild SMITA, likely prerenal due to dehydration Current creatinine is 1.1, BUN is 20, GFR is 50 Follow up on urine lytes Monitor BMP levels Received IV NS 2 L in the ER IV NS at the rate of 100ml/hr Hypokalemia Potassium of 3.1 Replacement per protocol Hypertension Blood pressure 153/83 Continue home medication after med rec BNP is 1001 Follow up on echocardiogram Continue telemetry monitoring Chronic pain syndrome Wheelchair-bound Hx of Cerebral palsy Patient has pain bilateral lower limbs Wells score is 0 for DVT and 1.5 for PE, less likely, ruled out pulmonary embolism D-dimer is 4.45 Follow up on venous ultrasound Baseline Dementia CT head shows No bleed.Mild chronic microvascular ischemic changes.Mild global cerebral volume loss. Hypothyroidism Follow up on TSH level Home med after med rec Hyperlipidemia LDL is 59 on 08/17 Continue home med after med rec Pending home med reconciliation Follow up on urine analysis, U tox if no urine output, do bedside ultrasound and straight cath Code status: Full code DVT prophylaxis : Scds GI prophylaxis: IV Protonix Nutrition: Clear liquid diet, advance diet based on the lab results/if no bleed. Physical therapy: ordered Line/tube: PIV Analgesia/sedation: Morphine/[place] Sepsis Screening Reassessment Date: Oct 06, 2025 Date of Service: Oct 06, 2025 Billing Provider: BISHNU ROMO MD Common Visit Codes: [id number] INP/OBS CARE(HIGH) BISHNU ROMO MD Oct 06, 2025 10:25
--- NOTE | 2025-10-06 11:30 | VASCULAR REPORT ---
Lower Extremity Duplex Doppler Reflux Study Date: 10/06/2025 09:19 AM Clinical History: swelling swelling Findings: Duplex Doppler evaluation including color Doppler and spectral/pulsed waveform analysis of the deep and superficial veins of the lower extremities was performed for evaluation of reflux using tilt table technique and Valsalva and augmentation maneuvers. Reflux is defined as lasting greater than one second for the purposes of this examination. InaRSNions Swelling, pain bilateral legs. No elevated D-dimer. Vein Imaging (Right) CFV (R): Compressible, Spontaneous, Respirophasic, Augmentation Reflux: ms SFJ (R): Compressible, Spontaneous, Respirophasic, Augmentation Reflux: ms FEM (R): Compressible, Spontaneous, Respirophasic, Augmentation Reflux: ms POP (R): Compressible, Spontaneous, Respirophasic, Augmentation Reflux: ms DFV (R): Compressible, Spontaneous, Respirophasic, Augmentation Reflux: ms PTV (R): Compressible, Spontaneous, Respirophasic, Augmentation GSV (R): Compressible, Spontaneous, Respirophasic, Augmentation Reflux: ms Reflux: ms Peroneals (R): Compressible, Spontaneous, Respirophasic, Augmentation Reflux: ms Vein Imaging (Left) CFV (L): Compressible, Spontaneous, Respirophasic, Augmentation Reflux: ms SFJ (L): Compressible, Spontaneous, Respirophasic, Augmentation Reflux: ms FEM (L): Compressible, Spontaneous, Respirophasic, Augmentation Reflux: ms POP (L): Compressible, Spontaneous, Respirophasic, Augmentation Reflux: ms DFV (L): Compressible, Spontaneous, Respirophasic, Augmentation Reflux: ms PTV (L): Compressible, Spontaneous, Respirophasic, Augmentation Reflux: ms GSV (L): Compressible, Spontaneous, Respirophasic, Augmentation Reflux: ms Peroneals (L): Compressible, Spontaneous, Respirophasic, Augmentation Reflux: ms CONCLUSION No sonographic evidence of deep venous thrombosis in bilateral lower extremities. Normal compressible veins with spontaneous respirophasic flow and good augmentation throughout both legs.
[2025-10-06 16:34] LABS: MEAN PLATELET VOLUME 7.8 FL (7.4-10.4); RED CELL DISTRIBUTION WIDTH 17.1 % (11.5-14.5)
[2025-10-06 18:00] VITALS: BP 140/70; PULSE 94; RESP 18; TEMP 98.1; O2SAT 95
[2025-10-06] MEDS ORDERED: POTASSIUM BICARB 20meq eff tab 20 MEQ TABLET.EFF PO PRN (18:45)
[2025-10-06 20:00] VITALS: BP_SYST 137; BP_SYST 140; BP_DIAS 69; BP_DIAS 70; PULSE 94; PULSE 96; RESP 20; O2SAT 97
[2025-10-06] MEDS: HYDROcodone/acetaminophen 5mg/325mg tablet PO PRN (20:23)
[2025-10-06] MEDS: ondansetron/PF 4mg/2ml inj IV PRN (20:34)
[2025-10-07 06:00] VITALS: BP 128/51; PULSE 91; RESP 18; TEMP 98; O2SAT 95
[2025-10-07 06:11] LABS: MEAN PLATELET VOLUME 8.4 FL (7.4-10.4); RED CELL DISTRIBUTION WIDTH 17.1 % (11.5-14.5)
[2025-10-07 06:18] LABS: CREATININE 0.63 MG/DL (0.40-0.90); TOTAL CARBON DIOXIDE 23.4 MMOL/L (24-32); eCRCL 69 ML/MIN; eGFR > 90 ML/MIN
[2025-10-07 08:00] VITALS: RESP 18; O2SAT 95
[2025-10-07 10:00] VITALS: BP_SYST 128; BP_SYST 158; BP_DIAS 66; BP_DIAS 71; PULSE 84; RESP 16; TEMP 97.7; O2SAT 95
--- NOTE | 2025-10-07 14:25 | RADIOLOGY REPORT ---
EXAM: NM NM LUNGS HISTORY: pe COMPARISON: None TECHNIQUE: 5.4 mCi of Tc99m MAA were utilized for the perfusion portion of the study. 43.9 mCi of Tc99m DTPA were utilized for the ventilation portion of the study. FINDINGS: Ventilation and perfusion images show homogeneous uptake of the radiotracer in both lungs without ventilation or perfusion defects. IMPRESSION: Very low probability for pulmonary embolism.
[2025-10-07 18:00] VITALS: BP 144/56
--- NOTE | 2025-10-07 19:03 | CONSULTATION REPORT - RESIDENT ---
Consult Providers to CC Resident Creating Document: NILAY HINSON RES History of Present Illness Reason for Admit\Complaint: Anemia History of Present Illness A 75 years old female with history of baseline dementia, cerebral palsy, wheelchair-bound, diverticulitis, GERD, insomnia, Hypertension, Urinary and Stool Incontinence, Hypothyroidism, Hyperlipidemia, chronic pain syndrome admitted with nausea, vomiting and diarrhea. Complains of fatigue since the beginning of the year. She is very recent history of 3-4 coffee-ground emesis 2 weeks ago. Currently she does not complain of nausea/vomiting, no abdominal pain/ distention, no diarrhea/constipation. She takes Xarelto for AFib, no history of other gastric antral and drugs including NSAIDs, iron pills. She also gives history of multiple watery non foul-smelling diarrhea in the last 7 days although she had no episodes of diarrhea during this hospitalization. Allergies: Uncoded Allergies: DIPHENHYDRAMINE (Allergy, Unknown, 06/15/25) Home Medications Home Medications Active Reported Vitamin D (Cholecalciferol) 1,000 Unit Capsule 1 Cap PO DAILY 30 Days Levothyroxine Sodium 75 Mcg Tablet 1 Tab PO DAILY 30 Days Vitamin D3 (Cholecalciferol (Vitamin D3)) 25 Mcg Tablet 1 Tab PO DAILY Omeprazole 20 Mg Capsule.dr 1 Cap PO DAILY 30 Days Melatonin 10 Mg Capsule 3 Cap PO HS 30 Days Meloxicam 15 Mg Tablet 1 Tab PO HS 30 Days Tylenol Extra Strength (Acetaminophen) 500 Mg Tablet 2 Tablet PO HS PRN Col-Rite (Docusate Sodium) 250 Mg Capsule 250 Mg PO DAILY Bupropion Xl (Bupropion HCl) 150 Mg Tab.er.24h 1 Tablet PO DAILY Gabapentin 600 Mg Tablet 1 Tab PO Q8H 30 Days Lipitor* (Atorvastatin Calcium) 40 Mg Tablet 40 Mg PO DAILY Past Medical History Past Medical History Baseline dementia Cerebral palsy Wheelchair-bound Diverticulitis GERD Hypertension Urinary and Stool Incontinence Hypothyroidism Hyperlipidemia Chronic pain syndrome Insomnia Past Surgical History Surgical History Comment Hysterectomy Knee Replacement Past Social History Social History Comment Patient quit smoking in 1970 before that she used to smoke 2 ciggrates daily. Previously patient use to 2 alcholic drinks per day and does not remember when she quit it. No illicit drug abuse. She lives in home with her partner. She has a caregiver. She is wheelchair bound. Smoking: Non-Smoker Alcohol Use: Rarely Drug Use: None Lives with: S/O Lives In: Home Occupation: retired Exam Vitals: Vital Signs Date Time Temp Pulse Resp B/P (MAP) Pulse Ox O2 Delivery O2 Flow Rate FiO2 10/07/25 13:50 16 10/07/25 10:00 97.7 84 128/66 (86) 95 Room Air General: General: Well alert, well oriented, not confused, not agitated, not in acute distress, well cooperated during the physical. HEENT: Conjunctive are pink, sclerae clear, no icterus, pupil is equal in both sides, reactive to light, no ear discharge, no pharyngeal erythema or an edema. Neck: Supple, no JVD, no lymphadenopathy and thyromegaly. Chest: Equal air entry on both lungs, no added sounds, no wheeze. Cardiovascular: S1-S2 regular sinus rhythm and, regular rate, no gallops, no rubs, no murmurs Abdomen: Bowel sounds present on auscultation, soft, nontender, no guarding, no rigidity Extremities: No obvious deformities, no pitting edema bilaterally, capillary refill intact, peripheral pulsations are intact on both sides Central Nervous System: No focal neurological deficits, no motor or sensory weakness in all 4 extremities, could move all 4 extremities, 2+ deep tendon reflexes, negative Babinski. Musculoskeletal: No joint swelling, deformities, inflammations, and no scoliosis and back tenderness Skin: Warm and dry. Diagnostic Data Last Recorded Lab Results: 10/07/25 0541 10/07/25 0541 Diagnostic Data: Laboratory Tests Test 10/05/25 22:39 Prothrombin Time 11.4 SECONDS (9.0-12.0) INR International Normalized Ratio 1.1 INR Activated Partial Thromboplast Time 26 SECONDS (22-32) D-Dimer 4.45 MG/L FEU (0-0.50) H D-Dimer Comment Coagulation Comments Additional Plan Assessment: This is a 86-year-old female with multiple medical problems including chronic kidney disease, stage IV, AFib on Xarelto being treated for chronic fatigue. Lab work reveals severe normocytic normochromic anemia with H&H levels of 8.3 and 25.5. She needs endoscopy to evaluate her recent symptom of coffee-ground emesis . Our differential diagnosis at this point include peptic ulcer disease, av malformation. Plan: Leukocytosis resolved. monitor H&H and transfuse PRBC in case hemoglobin drops below 7 NPO, endoscopy tomorrow morning Continue ceftriaxone and Flagyl as per hospitalist team for possible gastroenteritis. Nilay Hinson Internal Medicine, PGY 1 [facility] Date of Service: Oct 07, 2025 Billing Provider: DIALLO MERCADO MD, SHIVANI, RES Oct 07, 2025 19:03
--- NOTE | 2025-10-07 19:14 | CARDIOLOGY REPORT ---
APPROVED REPORT EXAM: Comprehensive 2D, Doppler, and color-flow Echocardiogram. Patient Location: 357B Blood Pressure: 144/79 mmHg Heart Rate: 100-160 bpm Indications Hypertension [employer] LEADER: Christopher Munguia MD Previous ECHO: 07/19/2018, CVC, EF: 60-65, m-mod AI/PI 2D Dimensions LA Diam 2.7 cm IVSd 1.0 (0.7-1.1cm) LVDd 4.3 cm PWd 0.9 (0.7-1.1cm) IVSs 1.6 (0.8-1.2cm) LVDs 2.8 (2.5-4.0cm) PWs 1.4 (0.8-1.2cm) LVOT Diameter 2.08 (1.8-2.4cm) LVEF(%) 64.2 (>50%) Ao Asc Diam. 2.94 cm IVC 15.37 mm FS (%) 34.7 % SV 53.6 ml CO 8.3 L/min M-Mode Dimensions Left Atrium(MM) 2.56 (2.5-4.0cm) Aortic Root 2.76 (2.2-3.7cm) Aortic Cusp Exc 1.89 (1.5-2.0cm) Aortic Valve AoV Peak Mark. 187.0 cm/s AoV VTI 31.7 cm AO Peak GR. 14.0 mmHg AO Mean GR. 10 mmHg LVOT VTI 29.89 cm LVOT Peak Mark. 163.7 cm/s DANGELO(VTI)/BSA 3.19 cm2/m2 DANGELO (VTI) 3.19 cm2 AI P 1/2 Time 356 ms AV DI 0.94 % Mitral Valve MV E Velocity 85.9 cm/s MV Peak Gr. 6 mmHg MV DECEL TIME 124 ms MV A Velocity 120.0 cm/s MV PHT 56 ms E/A Ratio 0.7 MVA (PHT) 3.93 cm2 MV VMax 121.1 cm/s TDI Lateral E' P. V 9.16 cm/s E/Lateral E' 9.4 Tricuspid Valve TR P. Velocity 171 cm/s RAP ESTIMATE 10 mmHg TR Peak Gr. 12 mmHg RVSP 22 mmHg LEFT VENTRICLE Normal LV size and wall thickness. Overall systolic function is normal. Intra- cavitary gradient is present with resting gradient of 14 mmHg. Patient unable to valsalva. LVEF is 65-70%. RIGHT VENTRICLE RV is normal size and function. ATRIA The left atrium size is normal. AORTIC VALVE Trileaflet AV appears mildly sclerotic without stenosis. Mild insufficiency. MITRAL VALVE Mitral valve leaflets are mildly thickened with mild annular calcification. No stenosis. Trace regurgitation. TRICUSPID VALVE The tricuspid valve is normal in structure with trace regurgitation. PULMONIC VALVE Pulmonic valve is grossly normal in structure with physiologic insufficiency GREAT VESSELS The aortic root is normal in size. The ascending aorta is normal in size. The IVC is normal in size and collapses >50% with inspiration. PERICARDIUM Normal pericardium. No effusion. Anterior epicardial fat pad is present. Other Information Study Quality: Adequate Conclusion Normal LV size and wall thickness. Overall systolic function is normal. Intra- cavitary gradient is present with resting gradient of 14 mmHg. Patient unable to valsalva. LVEF is 65-70%. RV is normal size and function. The left atrium size is normal. Trileaflet AV appears mildly sclerotic without stenosis. Mild insufficiency. Mitral valve leaflets are mildly thickened with mild annular calcification. No stenosis. Trace regurgitation. The tricuspid valve is normal in structure with trace regurgitation. Pulmonic valve is grossly normal in structure with physiologic insufficiency Normal pericardium. No effusion. Anterior epicardial fat pad is present.
[2025-10-07 20:00] VITALS: RESP 18; O2SAT 95
--- NOTE | 2025-10-07 20:08 | PROGRESS NOTE ---
Daily Progress Note Providers to CC No new complaint today, resting comfortably in the bed ~ Central Line/PICC still needed: No Castellanos-Non Protocol Castellanos Indications Met/Not Met: F/C Indications Not Met Antibiotic Timeout Antibiotic Ordered?: Yes MRSA Education MRSA Education Provided to pt: Yes Subjective As above Objective Vital Signs Date Time Temp Pulse Resp B/P (MAP) Pulse Ox O2 Delivery O2 Flow Rate FiO2 10/07/25 13:50 16 10/07/25 10:00 97.7 84 128/66 (86) 95 Room Air Vital signs, stable ,afebrile. Pulse Oximetry reflects adequate oxygenation. General: well developed, well nourished. Awake , alert, and oriented x4, resting comfortably in the bed, in no acute distress . Skin: Warm, dry, no pallor, no rash or petechiae. HEENT: Atraumatic, normocephalic, EOMI, anicteric sclera B; pink conjunctiva; PERRLA, normal oropharynx, moist oral and nasal mucosa. Tympanic membrane , nose , throat clear. Neck: Trachea midline. Supple, full range of motion, no JVD, bruit , hepatojugular reflex , lymphadenopathy or masses, or other lesions Cardiac: Regular rhythm, regular rate no murmurs, rubs, or gallops. Normal S1 and S2, no S3 noticed. PMI is normal. Respiratory: Equal breath sounds bilaterally, no tachypnea; lungs clear to auscultation bilaterally, no wheezing ,rub or rales, or crackles. Chest wall is symmetric and without deformity. No signs of trauma. Chest wall is nontender. No signs of respiratory distress. Resonance is normal upon percussion bilaterally. Gastrointestinal: Abdomen symmetric, non-distended, soft, non-tender, normal bowel sounds x4 quadrant, normoactive, no hepatosplenomegaly , no masses , no bruit, no flank pain bilaterally. No voluntary guarding, rebound, or rigidity. No tenderness to percussion. No pulsatile masses. Equal femoral pulses. No Umanzor's sign or McBurney point tenderness. Back; no CVA tenderness bilaterally, no deformities. Neck and back are without deformity as well. No tenderness noted on palpation of the spinous processes. Spinous processes are midline. Cervical, thoracic, and lumbar paraspinal muscles are not tender and are without spasm. Musculoskeletal: Extremities, normal range of motion, non-tender, muscle strength 5/5 x 4. Negative Homans signs bilaterally on lower extremity. Distal pulses full symmetrical, no clubbing, cyanosis , edema. Neurological: Speech is clear, alert, and oriented x 4. No motor or sensory deficit, deep tendon reflexes normal, cerebellar intact. Cranial nerves II-XII intact. Psych: Alert and or appropriate, normal affect. Vascular: Good distal pulses, which are equal x4; capillary refill less than 2 seconds. Lymphatic, no lymphadenopathy. Result Diagram: 10/07/25 0541 10/07/25 0541 Coagulation Studies Laboratory Tests Test 10/05/25 22:39 Prothrombin Time 11.4 SECONDS (9.0-12.0) INR International Normalized Ratio 1.1 INR Activated Partial Thromboplast Time 26 SECONDS (22-32) D-Dimer 4.45 MG/L FEU (0-0.50) H D-Dimer Comment Coagulation Comments Problem\Assessment\Plan Assessment/Plan Gastroenteritis likely bacterial White count is 19.7, lactate is 2.0 Follow up on blood culture IV Rocephin 1 g daily IV flagyl 500 mg Q8H Follow up on stool studies(culture, chun strain, ova and parasites ) Received IV NS 2 L in the ER IV NS at the rate of 100ml/hr Possible GI bleed Hx of GERD History of diverticulitis CT abd shows Large hiatal hernia containing the proximal stomach. Moderate to advanced sigmoid colon diverticulosis. H&H are 11.1/34.5, MCV 80.0 Monitor H&H q.8h Transfuse PRBC if Hgb is < 7 IV Protonix 40 mg q.12h Follow up on iron studies Follow up on stool occult blood EGD in the morning by GI doctor Mild SMITA, likely prerenal due to dehydration Current creatinine is 1.1, BUN is 20, GFR is 50 Follow up on urine lytes Monitor BMP levels Received IV NS 2 L in the ER IV NS at the rate of 100ml/hr Hypokalemia Potassium of 3.1 Replacement per protocol Hypertension Blood pressure 153/83 Continue home medication after med rec BNP is 1001 Follow up on echocardiogram Continue telemetry monitoring Chronic pain syndrome Wheelchair-bound Hx of Cerebral palsy Patient has pain bilateral lower limbs Wells score is 0 for DVT and 1.5 for PE, less likely, ruled out pulmonary embolism D-dimer is 4.45 Follow up on venous ultrasound Baseline Dementia CT head shows No bleed.Mild chronic microvascular ischemic changes.Mild global cerebral volume loss. Hypothyroidism Follow up on TSH level Home med after med rec Hyperlipidemia LDL is 59 on 08/17 Continue home med after med rec Pending home med reconciliation Follow up on urine analysis, U tox if no urine output, do bedside ultrasound and straight cath Code status: Full code DVT prophylaxis : Scds GI prophylaxis: IV Protonix Nutrition: Clear liquid diet, advance diet based on the lab results/if no bleed. Physical therapy: ordered Line/tube: PIV Analgesia/sedation: Morphine/[place] Sepsis Screening Reassessment Date: Oct 07, 2025 Date of Service: Oct 07, 2025 Billing Provider: BISHNU ROMO MD Common Visit Codes: [id number] INP/OBS CARE(HIGH) BISHNU ROMO MD Oct 07, 2025 20:07
[2025-10-07 21:56] LABS: OCCULT BLOOD STOOL POSITIVE (Neg)
[2025-10-08] VITALS (13 sets, daily range): BP systolic 115–180; BP diastolic 61–77; PULSE 61–97; RESP 14–18; TEMP 97.5–98.8; O2SAT 94–97
[2025-10-08 01:29] LABS: CREATININE,URINE RANDOM 59.0 MG/DL
[2025-10-08 01:30] LABS: OSMOLALITY UA 601.0 MOSM/K (50-1400)
[2025-10-08] MEDS: naphazoline/pheniramine eye 1 DROP BOTTLE EACHEYE PRN (01:41)
[2025-10-08 01:42] LABS: URINE AMPHETAMINE SCREEN NEGATIVE (Neg); URINE BARBITUATE SCREEN NEGATIVE (Neg); URINE BENZODIAZEPINES SCREEN NEGATIVE (Neg); URINE CANNABINOID SCREEN NEGATIVE (Neg); URINE COCAINE SCREEN NEGATIVE (Neg); URINE METHADONE SCREEN NEGATIVE (Neg); URINE OPIATE SCREEN NEGATIVE (Neg); URINE PHENCYCLIDINE SCREEN NEGATIVE (Neg)
[2025-10-08] MEDS ORDERED: hyDROXYzine 50 mg/ml injection ***IM only IM PRN (01:45)
[2025-10-08] MEDS: hyDROXYzine 50 mg/ml injection ***IM only IM ONE (01:45)
[2025-10-08 01:46] LABS: LEUKOCYTE ESTERASE ,URINE NEGATIVE (Neg); NITRITES, URINE NEGATIVE (Neg); OCCULT BLOOD,URINE NEGATIVE (Neg)
[2025-10-08 01:51] LABS: UA COLLECTION TYPE STRAIGHT CATH
[2025-10-08 05:54] LABS: CREATININE 0.58 MG/DL (0.40-0.90); TOTAL CARBON DIOXIDE 21.0 MMOL/L (24-32); eCRCL 75 ML/MIN; eGFR > 90 ML/MIN
[2025-10-08 06:00] LABS: MEAN PLATELET VOLUME 8.6 FL (7.4-10.4); RED CELL DISTRIBUTION WIDTH 16.4 % (11.5-14.5)
[2025-10-08] MEDS ORDERED: MIDAZolam 1 MG/ML 5ML VIAL ONE (09:34)
[2025-10-08] MEDS ORDERED: fentaNYL/PF 50MCG/1 ML 2ML syringe ONE (09:34)
[2025-10-08] MEDS: dextrose 50%-water 50ml dispensing syringe IV ONE (10:55)
[2025-10-08] MEDS: potassium CL 10mEq/100ml bag 100 ML IV ONE (14:41)
--- NOTE | 2025-10-08 18:47 | PROGRESS NOTE ---
Daily Progress Note Providers to CC No new complaint today, awaiting to go to EGD today ~ Central Line/PICC still needed: No Castellanos-Non Protocol Castellanos Indications Met/Not Met: F/C Indications Not Met Antibiotic Timeout Antibiotic Ordered?: Yes MRSA Education MRSA Education Provided to pt: Yes Subjective As above Objective Vital Signs Date Time Temp Pulse Resp B/P (MAP) Pulse Ox O2 Delivery O2 Flow Rate FiO2 10/08/25 13:15 96 16 163/72 (102) 96 10/08/25 13:00 Room Air 10/08/25 12:42 2.0 10/08/25 12:12 97.3 Vital signs, stable ,afebrile. Pulse Oximetry reflects adequate oxygenation. 2 L oxygen nasal cannula General: well developed, well nourished. Awake , alert, and oriented x4, resting comfortably in the bed, in no acute distress . Skin: Warm, dry, no pallor, no rash or petechiae. HEENT: Atraumatic, normocephalic, EOMI, anicteric sclera B; pink conjunctiva; PERRLA, normal oropharynx, moist oral and nasal mucosa. Tympanic membrane , nose , throat clear. Neck: Trachea midline. Supple, full range of motion, no JVD, bruit , hepatojugular reflex , lymphadenopathy or masses, or other lesions Cardiac: Regular rhythm, regular rate no murmurs, rubs, or gallops. Normal S1 and S2, no S3 noticed. PMI is normal. Respiratory: Equal breath sounds bilaterally, no tachypnea; lungs clear to auscultation bilaterally, no wheezing ,rub or rales, or crackles. Chest wall is symmetric and without deformity. No signs of trauma. Chest wall is nontender. No signs of respiratory distress. Resonance is normal upon percussion bilaterally. Gastrointestinal: Abdomen symmetric, non-distended, soft, non-tender, normal bowel sounds x4 quadrant, normoactive, no hepatosplenomegaly , no masses , no bruit, no flank pain bilaterally. No voluntary guarding, rebound, or rigidity. No tenderness to percussion. No pulsatile masses. Equal femoral pulses. No Umanzor's sign or McBurney point tenderness. Back; no CVA tenderness bilaterally, no deformities. Neck and back are without deformity as well. No tenderness noted on palpation of the spinous processes. Spinous processes are midline. Cervical, thoracic, and lumbar paraspinal muscles are not tender and are without spasm. Musculoskeletal: Extremities, normal range of motion, non-tender, muscle strength 5/5 x 4. Negative Homans signs bilaterally on lower extremity. Distal pulses full symmetrical, no clubbing, cyanosis , edema. Neurological: Speech is clear, alert, and oriented x 4. No motor or sensory deficit, deep tendon reflexes normal, cerebellar intact. Cranial nerves II-XII intact. Psych: Alert and or appropriate, normal affect. Vascular: Good distal pulses, which are equal x4; capillary refill less than 2 seconds. Lymphatic, no lymphadenopathy. Result Diagram: 10/08/25 0504 10/08/25 0504 Coagulation Studies Laboratory Tests Test 10/05/25 22:39 Prothrombin Time 11.4 SECONDS (9.0-12.0) INR International Normalized Ratio 1.1 INR Activated Partial Thromboplast Time 26 SECONDS (22-32) D-Dimer 4.45 MG/L FEU (0-0.50) H D-Dimer Comment Coagulation Comments Problem\Assessment\Plan Assessment/Plan Gastroenteritis likely bacterial White count is 19.7, lactate is 2.0 Follow up on blood culture We will DC antibiotics Follow up on stool studies(culture, chun strain, ova and parasites ) Received IV NS 2 L in the ER IV NS at the rate of 100ml/hr Possible GI bleed Hx of GERD History of diverticulitis CT abd shows Large hiatal hernia containing the proximal stomach. Moderate to advanced sigmoid colon diverticulosis. H&H are 11.1/34.5, MCV 80.0 Monitor H&H q.8h Transfuse PRBC if Hgb is < 7 IV Protonix 40 mg q.12h Follow up on iron studies Follow up on stool occult blood EGD in the morning by GI doctor Mild SMITA, likely prerenal due to dehydration Current creatinine is 1.1, BUN is 20, GFR is 50 Follow up on urine lytes Monitor BMP levels Received IV NS 2 L in the ER IV NS at the rate of 100ml/hr Hypokalemia Potassium of 3.1 Replacement per protocol Hypertension Blood pressure 153/83 Continue home medication after med rec BNP is 1001 Follow up on echocardiogram Continue telemetry monitoring Chronic pain syndrome Wheelchair-bound Hx of Cerebral palsy Patient has pain bilateral lower limbs Wells score is 0 for DVT and 1.5 for PE, less likely, ruled out pulmonary embolism D-dimer is 4.45 Follow up on venous ultrasound Baseline Dementia CT head shows No bleed.Mild chronic microvascular ischemic changes.Mild global cerebral volume loss. Hypothyroidism Follow up on TSH level Home med after med rec Hyperlipidemia LDL is 59 on 08/17 Continue home med after med rec Pending home med reconciliation Follow up on urine analysis, U tox if no urine output, do bedside ultrasound and straight cath Code status: Full code DVT prophylaxis : Scds GI prophylaxis: IV Protonix Nutrition: Clear liquid diet, advance diet based on the lab results/if no bleed. Physical therapy: ordered Line/tube: PIV Analgesia/sedation: Morphine/[place] Sepsis Screening Reassessment Date: Oct 08, 2025 Date of Service: Oct 08, 2025 Billing Provider: BISHNU ROMO MD Common Visit Codes: [id number] INP/OBS CARE(HIGH) BISHNU ROMO MD Oct 08, 2025 18:47
[2025-10-08] MEDS: famotidine/PF 10 mg/ml inj IV SCH (21:56)
[2025-10-08] MEDS: ondansetron/PF 4mg/2ml inj IV ONE (23:49)
[2025-10-09 05:46] LABS: MEAN PLATELET VOLUME 9.0 FL (7.4-10.4); RED CELL DISTRIBUTION WIDTH 16.8 % (11.5-14.5)
[2025-10-09 06:00] VITALS: BP 146/65; PULSE 66; RESP 16; TEMP 97.6; O2SAT 98
[2025-10-09 06:02] LABS: CREATININE 0.64 MG/DL (0.40-0.90); TOTAL CARBON DIOXIDE 23.8 MMOL/L (24-32); eCRCL 68 ML/MIN; eGFR 90 ML/MIN
[2025-10-09 10:00] VITALS: BP 134/53; PULSE 103; RESP 16; TEMP 98.3; O2SAT 94
--- NOTE | 2025-10-09 18:25 | DISCHARGE SUMMARY ---
Discharge Summary Providers to CC Feels fine today asking to be discharged home ~ Discharge Summary Assessment Baseline dementia Hematemesis Anemia Acute gastro enterocolitis Cerebral palsy Wheelchair-bound Diverticulitis GERD Hypertension Urinary and Stool Incontinence Hypothyroidism Hyperlipidemia Chronic pain syndrome Insomnia Admission Diagnosis: ALTERED MENTAL STATUS Admission Diagnosis Comment: Baseline dementia Hematemesis Anemia Acute gastro enterocolitis Cerebral palsy Wheelchair-bound Diverticulitis GERD Hypertension Urinary and Stool Incontinence Hypothyroidism Hyperlipidemia Chronic pain syndrome Insomnia Hospital Course DATE OF ADMISSION: October 05, 2025 DATE OF DISCHARGE: October 09, 2025 Discharge Diagnosis\Comment: Baseline dementia Hematemesis Anemia Acute gastro enterocolitis Cerebral palsy Wheelchair-bound Diverticulitis GERD Hypertension Urinary and Stool Incontinence Hypothyroidism Hyperlipidemia Chronic pain syndrome Insomnia Operations\Procedures: EGD Consultants: GI doctor Complications: None Condition on DC: Stable Discharge Summary: A 75 years old female with history of baseline dementia, cerebral palsy, wheelchair-bound, diverticulitis, GERD, insomnia, Hypertension, Urinary and Stool Incontinence, Hypothyroidism, Hyperlipidemia, chronic pain syndrome admitted with nausea, vomiting and diarrhea. Patient is alert, awake, oriented to time place and person. Patient is very poor historian and she has dementia. Patient reports that she has nausea, multiple episodes of watery- vomiting and loose watery non foul-smelling diarrhea from the last 7 days. In the hospital, patient has no episodes of vomiting or diarrhea, dark color stools. Patient denies any abdominal pain, shortness of breath, abdominal distention, chest pain, lightheadedness, acid reflux, dyspepsia, altered level of consciousness, fever, chills, blood in vomit and dark stools. Patient denies any recent falls or injuries. In addition to that patient also complains of pain in both leg, right arm and she can not raise her right arm and right leg fully since couple of years. As per ED physician: 75-year-old female brought in by EMS for nausea and vomiting abdominal pain and shortness of breath over last seven days. The patient has been confused per family for about the same amount of time. No documented fever, the patient has been complaining of epigastric abdominal pain has been states he has she has bee n throwing up coffee-ground emesis and had dark stools. The patient's symptoms are moderate and persistent. The patient is unable to provide any additional history. History was obtained by the has been an EMS. After admission patient was extensively evaluated treated today she is feeling fine asking to be discharged home, she will be discharged in stable condition, medication r econciled, follow-up PCP and GI doctor in three days, today on physical exam Vital signs, stable ,afebrile. Pulse Oximetry reflects adequate oxygenation. General: well developed, well nourished. Awake , alert, and oriented x4, resting comfortably in the bed, in no acute distress . Skin: Warm, dry, no pallor, no rash or petechiae. HEENT: Atraumatic, normocephalic, EOMI, anicteric sclera B; pink conjunctiva; PERRLA, normal oropharynx, moist oral and nasal mucosa. Tympanic membrane , nose , throat clear. Neck: Trachea midline. Supple, full range of motion, no JVD, bruit , hepatojugular reflex , lymphadenopathy or masses, or other lesions Cardiac: Regular rhythm, regular rate no murmurs, rubs, or gallops. Normal S1 and S2, no S3 noticed. PMI is normal. Respiratory: Equal breath sounds bilaterally, no tachypnea; lungs clear to auscultation bilaterally, no wheezing ,rub or rales, or crackles. Chest wall is symmetric and without deformity. No signs of trauma. Chest wall is nontender. No signs of respiratory distress. Resonance is normal upon percussion bilaterally. Gastrointestinal: Abdomen symmetric, non-distended, soft, non-tender, normal bowel sounds x4 quadrant, normoactive, no hepatosplenomegaly , no masses , no bruit, no flank pain bilaterally. No voluntary guarding, rebound, or rigidity. No tenderness to percussion. No pulsatile masses. Equal femoral pulses. No Umanzor's sign or McBurney point tenderness. Back; no CVA tenderness bilaterally, no deformities. Neck and back are without deformity as well. No tenderness noted on palpation of the spinous processes. Spinous processes are midline. Cervical, thoracic, and lumbar paraspinal muscles are not tender and are without spasm. : normal external genitalia, without lesions, swelling, masses or tenderness. Musculoskeletal: Extremities, normal range of motion, non-tender, muscle strength 5/5 x 4. Negative Homans signs bilaterally on lower extremity. Distal pulses full symmetrical, no clubbing, cyanosis , edema. Neurological: Speech is clear, alert, and oriented x 4. No motor or sensory deficit, deep tendon reflexes normal, cerebellar intact. Cranial nerves II-XII intact. Psych: Alert and or appropriate, normal affect. Vascular: Good distal pulses, which are equal x4; capillary refill less than 2 seconds. Lymphatic, no lymphadenopathy. *Problems/Diagnosis: (1) Gastroenteritis Status: Acute (2) Anemia Status: Acute Total Time Spent on D/C: > 30 Minutes Date of Service: Oct 09, 2025 Billing Provider: BISHNU ROMO MD Common Visit Codes: [id number] DISCH DAY >30min BISHNU ROMO MD Oct 09, 2025 18:25
== END 2025-10-09 18:45 | disposition home health service (06) | DRG 871 ==
LOC: ER 16:07 → ED HOLD 21:15 → SUR 3N 22:55
PROVIDERS: ADMIT Internal Medicine; ATTEND Family Medicine
PROC: CB121ZZ Planar Nuclear Medicine Imaging of Lungs and Bronchi using Technetium 99m (Tc-99m) (ICD-10-PCS; principal; 2025-10-07)
PROC: 0DB58ZX Excision of Esophagus, Via Natural or Artificial Opening Endoscopic, Diagnostic (ICD-10-PCS; 2025-10-08)
PROC: 0DB78ZX Excision of Stomach, Pylorus, Via Natural or Artificial Opening Endoscopic, Diagnostic (ICD-10-PCS; 2025-10-08)
DX: A41.9 Sepsis, unspecified organism (principal); K21.01 Gastro-esophageal reflux disease with esophagitis, with bleeding; N17.0 Acute kidney failure with tubular necrosis; N18.4 Chronic kidney disease, stage 4 (severe); A04.9 Bacterial intestinal infection, unspecified; F03.918 Unspecified dementia, unspecified severity, with other behavioral disturbance; G80.9 Cerebral palsy, unspecified; I48.91 Unspecified atrial fibrillation; K57.32 Diverticulitis of large intestine without perforation or abscess without bleeding; Z79.01 Long term (current) use of anticoagulants; E03.9 Hypothyroidism, unspecified; I12.9 Hypertensive chronic kidney disease with stage 1 through stage 4 chronic kidney disease, or unspecified chronic kidney disease; D64.89 Other specified anemias; R15.9 Full incontinence of feces; R32 Unspecified urinary incontinence; G89.4 Chronic pain syndrome; K44.9 Diaphragmatic hernia without obstruction or gangrene; E87.6 Hypokalemia; E78.00 Pure hypercholesterolemia, unspecified; K21.9 Gastro-esophageal reflux disease without esophagitis; Z20.822 Contact with and (suspected) exposure to COVID-19; M81.0 Age-related osteoporosis without current pathological fracture; Z90.710 Acquired absence of both cervix and uterus; Z99.3 Dependence on wheelchair; Z87.891 Personal history of nicotine dependence
CPT/HCPCS: 36415; 43239; 70450; 71045; 74176; 78582; 80048; 80053; 80305; 81003; 82272; 82570; 82728; 82948; 83036; 83540; 83550; 83605; 83690; 83735; 83880; 83930; 83935; 84100; 84145; 84300; 84443; 84466; 84484; 85025; 85027; 85379; 85610; 85730; 87040; 87045; 87046; 87081; 87804; 87811; 89055; 93005; 93306; 93970; 96365; 96368; 97110; 97163; 97530; 99152; 99153; 99285; A4615; A4620; A6258; A9539; A9540; C1758; G0378; J0696; J2250; J2270; J2405; J2470; J2543; J2919; J3010; J3480; J3490; J7030; J7040; Q0177

== ENCOUNTER 2025-10-27 05:05 | Inpatient (IN) | payer OTHER, BC ==
[~2025-10-27] VITALS: Ht 165.1 cm; Wt 92.0 kg
[~2025-10-27 05:05] MED LIST changes: -ALEN35TA53 PO; +ATOR20TA66 PO; -ATOR40TA PO; +BUPR-559 PO; -BUPR150T23 PO; -CHOL100017 PO; +CHOL10006 PO; +ESCI-8 PO; -HYDR12.55 PO; -LEVO100T9 PO; +LEVO125T8 PO; -LOP25T PO; -LOPE2CAP PO; -MELO-100 PO; -MELO-102 PO; +METO25TA6 PO; -ONDA-245 PO; -OXYB5TAB21 PO; +ROPI0.5T37 PO
--- NOTE | 2025-10-27 05:22 | Physician Documentation ---
History of Present Illness ~ Chief Complaint: Vomiting Stated Complaint: GI BLEED Time Seen by MD: 05:14 Primary Medical Doctor: Lori BEAN Patient presents to the emergency room with three days' history of hematemesis. She was admitted here recently for similar complaint. Patient underwent an EGD which showed esophagitis. Patient is a poor historian. She does not take blood thinners Medication Reconciliation Allergies: Uncoded Allergies: DIPHENHYDRAMINE (Allergy, Unknown, 06/15/25) Scheduled Atorvastatin Calcium (Atorvastatin Calcium), 1 TAB PO DAILY, (Reported) Bupropion HCl (Bupropion Xl), 1 TAB PO DAILY, (Reported) Escitalopram Oxalate (Escitalopram Oxalate), 1 TAB PO DAILY, (Reported) Gabapentin (Gabapentin), 1 TAB PO Q8H, (Reported) Levothyroxine Sodium (Levothyroxine Sodium), 1 TAB PO DAILY, (Reported) Losartan Potassium (Losartan Potassium), 25 MG PO DAILY, (Reported) Melatonin (Melatonin), 3 CAP PO HS, (Reported) Metoprolol Tartrate (Metoprolol Tartrate), 0.5 TAB PO DAILY, (Reported) Omeprazole (Prilosec), 1 CAP PO BID Potassium Chloride 8 MEQ* (Slow-K 8 Meq*), 1 CAP PO DAILY, (Reported) Ropinirole Hcl (Ropinirole Hcl), 1 TAB PO HS, (Reported) Scheduled PRN Hypromellose (Tears Lubricant Eye Drop), 1 DROP EACHEYE DAILY PRN for dry eyes, (Reported) Trazodone HCl (Trazodone HCl), 50 MG PO HS PRN for SLEEP Discontinued Medications Acetaminophen (Tylenol Extra Strength), 2 TABLET PO HS PRN for pain, (Reported) Discontinued Reason: patient no longer taking Cholecalciferol (Vitamin D), 1 CAP PO DAILY, (Reported) Discontinued Reason: patient no longer taking Docusate Sodium (Col-Rite), 250 MG PO DAILY, (Reported) Discontinued Reason: patient no longer taking Omeprazole (Omeprazole), 20 MG PO BID Past Medical History Past Medical History: High Cholesterol, Hypertension, GERD, GI Bleed, Anemia, Hypothyroidism, Osteoporosis, *PSYCH* Past Surgical History: hysterectomy, orthopedic surgeries, other Alcohol Use: Rarely Drug Use: none Lives with: S/O Lives In: Home Occupation: retired Review of Systems All Other Systems at this time: Reviewed and Negative ROS All review of systems negative except as per HPI Physical Exam Vital Signs: Temperature: 98.0, Source: Oral, Heart Rate: 109, Respiratory Rate: 14, BP: 138/78, Pulse Oximetry: 97, Weight: 92.000 Oxygen Flow Rate: 0 Physical Exam General: Patient is awake, alert, oriented x4 in no acute distress and well ap pearing.~ Head: Normocephalic and atraumatic. Eyes: Conjunctival normal. EOMI. PERRL. ENT: Mucous membranes moist. Neck: Supple, trachea is midline. Chest: Clear to auscultation bilaterally without rales, rhonchi, or wheezes. There is no accessory muscle use or retractions. Cardiac: Tachycardic and regular without murmurs, gallops, or rubs. Abd: Soft, nondistended, nontender, with normoactive bowel sounds. No guarding, rebound, or rigidity. . Progress Results/Orders Results/Orders Orders - SHABBIR ROLLINS MD Chest,Single View (10/27/25 05:17) Electrocardiogram (10/27/25 05:17) Monitor (10/27/25 05:17) Saline Lock (10/27/25 05:17) Completed Orders - SHABBIR ROLLINS MD Cbc/Diff (10/27/25 05:17) BMP (10/27/25 05:17) Type And Screen (10/27/25 05:17) Chest,Single View (10/27/25 05:17) Electrocardiogram (10/27/25 05:17) Nothing By Mouth (10/27/25 Breakfast) Normal Saline 1000ml (0.9% Sodium Chlori (10/27/25 05:25) Ondansetron Inj. (Zofran 4mg/2ml Vial) (10/27/25 06:00) Pantoprazole 40mg Iv (Protonix 40mg Iv) (10/27/25 06:00) Pt Inr (10/27/25 07:21) PTT (10/27/25 07:21) Ua W/Microscopic, Cult If Ind (10/28/25 04:30) Vital Signs 10/27/25 10/27/25 10/27/25 10/27/25 06:09 06:44 08:00 09:17 Temp 98.0 Pulse 110 109 107 Resp 16 18 18 24 B/P (MAP) 158/88 (111) 124/72 (89) 133/77 (95) Pulse Ox 99 96 96 O2 Flow Rate 0 0 10/27/25 10/27/25 11:22 12:28 Pulse 101 101 Resp 14 15 B/P (MAP) 144/66 (92) 154/65 (94) Pulse Ox 99 97 O2 Flow Rate 0 0 Laboratory Tests Test 10/27/25 07:00 10/27/25 07:54 White Blood Count 16.5 H Red Blood Count 3.82 L Hemoglobin 9.6 L Hematocrit 30.0 L Mean Corpuscular Volume 78.6 Mean Corpuscular Hemoglobin 25.1 L Mean Corpuscular Hemoglobin Concent 31.9 L Red Cell Distribution Width 17.6 H Platelet Count 523 H Mean Platelet Volume 8.3 Neutrophils (%) (Auto) 83.7 H Lymphocytes (%) (Auto) 8.0 L Monocytes (%) (Auto) 7.3 Eosinophils (%) (Auto) 0.2 Basophils (%) (Auto) 0.8 Neutrophils # (Auto) 13.8 H Lymphocytes # (Auto) 1.3 Monocytes # (Auto) 1.2 H Eosinophils # (Auto) 0.0 Basophils # (Auto) 0.1 CBC Comment Coagulation Comments Sodium Level 142 Potassium Level 3.7 Chloride Level 105 Carbon Dioxide Level 24.4 Anion Gap 13 Blood Urea Nitrogen 9 Creatinine 0.62 Estimated GFR/1.73 m2 > 90 BUN/Creatinine Ratio 14.5 Glucose Level 126 H Calcium Level 8.2 L Albumin 2.7 L Chemistry Comments Prothrombin Time 11.4 INR International Normalized Ratio 1.1 Activated Partial Thromboplast Time 26 EKG/XRAY/CT/US/VASC/MRI EKG : Additional Comment EKG interpreted by myself shows time of 0528, rate 109, sinus tachycardia, left axis deviation, no ST changes Chest X-Ray : Interpreted By: radiologist Views: 1 VIEW Indication: other Additional Comments Chest x-ray interpreted by myself shows cardiomegaly, no effusions and no infiltrates Radiology CXR Report: FINDINGS: Lines and Tubes: None Lungs: No focal consolidation. Pleura: No effusion. No pneumothorax. Cardiomediastinal contours: Cardiomegaly. There is a retrocardiac lucency likely representing a hiatal hernia. Bones: No acute osseous abnormality. Degenerative changes in the shoulders. There is a neurostimulator overlying the thoracic spine. IMPRESSION: 1. No acute cardiopulmonary disease. 2. Hiatal hernia. Medical Decision Making Findings A 75-year-old female patient presented to the ER for certain amount of bright red colored vomiting for multiple times with a past medical history of GERD, s/p EGD reflecting Grade C Esophagitis on 11/16, hypothyroidism, hyperlipidemia, cognitive dysfunction, developmental delayed, diverticulosis, who was admitted to hospital for upper GI bleed on 10/20/25. Her cognitive dysfunction made her a poor historian where she could not contribute details history for the further management, and most information obtained from the previous recent admission. On arrival to ER, her vitals were stable with the slightly tachycardia. She was kept on NPO and put on the ERICA Protonix infusion after the loading dose of 80 mg Protonix. On reassessment of pt in ER, pt complained of being thirsty and requesting for the water and food. Her vitals were still stable with the HR around 105s and BP around 130/70s. GI was contacted for possible EGD with the hospital admission. Pt was reported to have zero urine output since she came in to the ER by primary nurse. She was given One time dose of IV NS 1L bolus dose in ER. [facility] was [facility]aged out for the admission and further management at 1149. Diff Dx GI Bleed:Consideration: Include: Blood loss anemia, Esophagitis, Gastroenteritis, PUD Diff Dx Pain:Considerations: Unlikely: AAA, -Complete, - Incomplete, -Inevitable, -Missed, -Threatened, Abruptio placentae, Angina/AL, Aortic dissection, Appendicitis, Bowel obstruction, C holangitis, Cholecystitis, Cholelithasis, Constipation, Diverticular disease, Dysmenorrhea, Ectopic , Esophageal rupture, Esophagitis, Gastritis/PUD, Gastroenteritis, GI hemorrhage, Hernia, Hepatitis, Inflammatory BD, Ischemic bowel, Mass, Ovarian cyst/torsion, Pancreatitis, PID, Porphyria, Trauma, intraabdominal, Urinary obstruction, Urinary tract infection, Urolithiasis, Other Diff Dx N/V/D:Considerations: Include: Dehydration, Gastroenteritis, GE reflux, GI bleed, Malnutrition, PUD Diff Dx Rectal:Considerations: Unlikely: Fissure, Fistula, Foreign body, Impaction, Perirectal abscess, Rectal prolapse, Subcutaneous abscess, Thrombosed hemorrhoid, Ulcer, UTI, Other Departure Time of Disposition: 11:50 Disposition: 09 ADMITTED INPATIENT Admitted to Inpatient Unit: yes, to hospitalist Impression: Primary Impression: Hematemesis Additional Impression: Esophagitis Condition: Guarded Referrals: NO PRIMARY CARE PROVIDER (PCP) Prescriptions Omeprazole (Prilosec) 40 Mg Capsule 1 CAP PO BID for 30 Days, #60 CAP Prov: CATHERINEMICHELLE Annie DO 10/29/25 Education Educated: Patient Educated regarding: diagnosis, treatment, prognosis Signature Scribe Signature: No scribe Attestation: The note accurately reflects work and decisions made by me.Shabbir Rollins MD 10/27/25 05:49 Resident MD attestation: The note was overwriting Dr Rollins's note by me during day shift in ER, and Patient was seen, examined and discussed with ER attending MD, Dr. Andria MD Internal Medicine Resident, PGY3 [facility] SHABBIR ROLLINS MD Oct 27, 2025 05:22 DAVI WATERS, RUTHY Oct 27, 2025 09:53 DALILA MONTOYA MD Oct 28, 2025 06:03
--- NOTE | 2025-10-27 05:31 | ELECTROCARDIOGRAPH REPORT ---
[facility] Test Date: 2025-10-27 Test Time: 05:28:11 Pat Name: ERLIN NÚÑEZ Department: [facility]-ER Patient ID: [facility]-[id number] Room: [place] [address] Gender: F Acute Care Certified Nursing Assistant: MARY : 1950 Requested By: SAIDA PADILLA Order Number: [id number] Reading MD: Dr. MARY ANN Olmedo Measurements Intervals M[place]ill Rate: 109 P: 4 AL: 156 QRS: -65 QRSD: 85 T: 5 QT: 376 QTc: 507 Interpretive Statements Sinus tachycardia Inferior infarct, old Consider anterior infarct Prolonged QT interval Electronically Signed On 10-27-2025 16:53:[address] MARY ANN Olmedo Please click the below link to view image of tracing.
--- NOTE | 2025-10-27 05:54 | RADIOLOGY REPORT ---
CHEST RADIOGRAPH Indication: Hypotension Technique: Single frontal view of the chest was obtained Comparison: DI CHEST,SINGLE VIEW on DOS: 10/16/25 FINDINGS: Lines and Tubes: None Lungs: No focal consolidation. Pleura: No effusion. No pneumothorax. Cardiomediastinal contours: Cardiomegaly. There is a retrocardiac lucency likely representing a hiatal hernia. Bones: No acute osseous abnormality. Degenerative changes in the shoulders. There is a neurostimulator overlying the thoracic spine. IMPRESSION: 1. No acute cardiopulmonary disease. 2. Hiatal hernia.
[2025-10-27] MEDS: normal saline 1000ml 1,000 ML IV ONE ×2 (06:16→10:47)
[2025-10-27] MEDS: ondansetron/PF 4mg/2ml inj IV ONE (06:17)
[2025-10-27 07:26] LABS: MEAN PLATELET VOLUME 8.3 FL (7.4-10.4); RED CELL DISTRIBUTION WIDTH 17.6 % (11.5-14.5)
[2025-10-27 07:35] LABS: CREATININE 0.62 MG/DL (0.40-0.90); TOTAL CARBON DIOXIDE 24.4 MMOL/L (24-32); eCRCL 71 ML/MIN; eGFR > 90 ML/MIN
[2025-10-27 08:26] LABS: APTT 26 SECONDS (22-32); INR 1.1 INR
--- NOTE | 2025-10-27 12:36 | HISTORY AND PHYSICAL ---
History & Physical Providers to CC ~ History of Present Illness Reason for Admit\Complaint: Hematemesis History of Present Illness Patient is a 75 years old female who presented to the ER and I was informed by the ER physician that patient has been having hematemesis for three days however when I interviewed the patient, she denied having any such symptoms. She does not know why she is here. Patient was recently admitted this facility and at that time underwent an EGD which showed esophagitis. Patient has been admitted for further observation and evaluation. Patient is a poor historian. She denies having any abdominal pain however complained of discomfort on urination to the nurse. Denies having any chest pain or any focal neurological symptoms. Allergies: Uncoded Allergies: DIPHENHYDRAMINE (Allergy, Unknown, 06/15/25) Home Medications Home Medications Active Trazodone HCl 50 Mg Tablet 50 Mg PO HS PRN 30 Days Omeprazole 20 Mg Capsule.dr 20 Mg PO BID 30 Days Reported Ropinirole Hcl 0.5 Mg Tablet 1 Tab PO HS Slow-K 8 Meq* (Potassium Chloride) 8 Meq Capsule.sa 1 Cap PO DAILY Metoprolol Tartrate 25 Mg Tablet 0.5 Tab PO DAILY Escitalopram Oxalate 10 Mg Tablet 1 Tab PO DAILY Levothyroxine Sodium 125 Mcg Tablet 1 Tab PO DAILY Losartan Potassium 50 Mg Tablet 25 Mg PO DAILY Bupropion Xl (Bupropion HCl) 300 Mg Tab.er.24h 1 Tab PO DAILY Atorvastatin Calcium 20 Mg Tablet 1 Tab PO DAILY Melatonin 10 Mg Capsule 3 Cap PO HS 30 Days Gabapentin 600 Mg Tablet 1 Tab PO Q8H 30 Days Past Medical History Past Medical History Hypertension, hypothyroidism, hyperlipidemia, GERD, restless legs syndrome Past Surgical History Surgical History Comment Hysterectomy and orthopedic surgeries as noted in the ER records Family History Family History: Family history was reviewed; no changes noted. Past Social History Social History Comment Does not smoke drink or do any drugs Health Maintenance Health Maintenance Current on her immunizations ROS ROS Information is limited in all other systems are negative except as mentioned in HPI. Exam Vitals: Vital Signs Date Time Temp Pulse Resp B/P (MAP) Pulse Ox O2 Delivery O2 Flow Rate FiO2 10/27/25 12:28 101 15 154/65 (94) 97 0 10/27/25 08:00 98.0 General: Awake cooperative in no acute distress HEENT: Normocephalic, atraumatic, extraocular movements are intact. Neck: Supple, no JVD Chest: Clear to auscultation, no wheezes crackles or rhonchi Cardiovascular: Regular rate rhythm, no murmur or gallop rub Abdomen: Soft, nontender, no organomegaly Extremities: No cyanosis clubbing or edema Central Nervous System: Moves all four extremities. Nonfocal. Diagnostic Data Last Recorded Lab Results: 10/27/25 0700 10/27/25 0700 Diagnostic Data: Laboratory Tests Test 10/27/25 07:54 Prothrombin Time 11.4 SECONDS (9.0-12.0) INR International Normalized Ratio 1.1 INR Activated Partial Thromboplast Time 26 SECONDS (22-32) Coagulation Comments Additional Plan 75 years old female presented to the ER for evaluation of hematemesis. # hematemesis: Patient denied having any such symptoms. We will check stool for occult blood. I contacted who advised me to contact her again if patient has any further issues. # hypothyroidism: Continue levothyroxine #Hypertension: Continue losartan # hyperlipidemia: Continue atorvastatin # restless legs syndrome: Continue ropinirole # GERD: Patient is not on any medications. We will start on IV Protonix We will monitor. #code status: Patient wishes to be full code Date of Service: Oct 27, 2025 Billing Provider: LADI REBOLLEDO MD Common Visit Codes: [id number] INP/OBS CARE (HIGH) LADI REBOLLEDO MD Oct 27, 2025 12:36
[2025-10-27] MEDS ORDERED: ondansetron/PF 4mg/2ml inj IV PRN (12:40)
[2025-10-27] MEDS ORDERED: magnesium sulf-water 4G/100mL 100 ML IV PRN (12:40)
[2025-10-27] MEDS ORDERED: potassium Cl 40MEQ/1/2NS 520ml 520 ML IV PRN (12:40)
[2025-10-27] MEDS ORDERED: potassium Cl 20 mEq SR tablet PO PRN (12:40)
[2025-10-27] MEDS ORDERED: magnesium sulf-water 2g/50mL 50 ML IV PRN (12:40)
[2025-10-27] MEDS: normal saline 1000ml 1,000 ML IV SCH (13:20)
[2025-10-27] MEDS: pantoprazole 40MG/NS 100ML BAG 100 ML IV SCH (16:31)
[2025-10-27 17:00] VITALS: BP 149/88; PULSE 99; RESP 13; TEMP 98.1; O2SAT 97
[2025-10-27 18:00] VITALS: BP 140/69; PULSE 99; RESP 23; TEMP 97.6; O2SAT 93
[2025-10-27 20:00] VITALS: BP_SYST 128; BP_SYST 140; BP_DIAS 66; BP_DIAS 69; PULSE 109; PULSE 99; RESP 23; O2SAT 93
[2025-10-27] MEDS: K and/or MAG REPLACEMENT MC SCH (20:00)
[2025-10-27 22:00] VITALS: BP 108/66; PULSE 109; RESP 19; TEMP 97.4; O2SAT 94
[2025-10-28] VITALS (20 sets, daily range): BP systolic 98–155; BP diastolic 51–78; PULSE 76–105; RESP 10–20; TEMP 97.1–98.9; O2SAT 93–99
[2025-10-28 04:40] LABS: LEUKOCYTE ESTERASE ,URINE MODERATE (Neg); NITRITES, URINE POSITIVE (Neg); OCCULT BLOOD,URINE TRACE-INTACT (Neg)
[2025-10-28 04:49] LABS: UA COLLECTION TYPE NON-SPECIFIED
[2025-10-28 04:53] LABS: SQUAMOUS EPITHELIAL CELL,UR MANY /LPF (FEW)
[2025-10-28 05:54] LABS: MEAN PLATELET VOLUME 8.3 FL (7.4-10.4); RED CELL DISTRIBUTION WIDTH 17.6 % (11.5-14.5)
[2025-10-28 06:07] LABS: CREATININE 0.48 MG/DL (0.40-0.90); TOTAL CARBON DIOXIDE 24.2 MMOL/L (24-32); eCRCL 91 ML/MIN; eGFR > 90 ML/MIN
[2025-10-28] MEDS: potassium Cl 20 mEq SR tablet PO PRN (07:10)
--- NOTE | 2025-10-28 12:18 | PROGRESS NOTE ---
Daily Progress Note Providers to CC ~ Antibiotic Timeout Antibiotic Ordered?: No Subjective Patient states she is thirsty. Has not had any hematemesis further. Nursing staff has not reported any overnight events to me. Objective Vital Signs Date Time Temp Pulse Resp B/P (MAP) Pulse Ox O2 Delivery O2 Flow Rate FiO2 10/28/25 11:30 102 132/71 (91) 98 146/71 (96) 10/28/25 08:00 Room Air 0.0 10/28/25 06:00 98.1 20 95 Result Diagram: 10/28/25 0511 10/28/25 0511 Awake cooperative, HEENT: Normocephalic, atraumatic, extraocular movements are intact Neck supple, no JVD Chest: Clear to auscultation, no wheezes crackles rhonchi Heart: Regular rate rhythm, no murmur or gallop rub Abdomen is soft nontender no organomegaly Extremities no cyanosis clubbing or edema Neuro Coagulation Studies Laboratory Tests Test 10/27/25 07:54 Prothrombin Time 11.4 SECONDS (9.0-12.0) INR International Normalized Ratio 1.1 INR Activated Partial Thromboplast Time 26 SECONDS (22-32) Coagulation Comments Other Results Medications reviewed Problem\Assessment\Plan 75 years old female presented to the ER for evaluation of hematemesis. # hematemesis: Patient denied having any such symptoms at the time of admission. Patient does not report any vomiting this morning no hematemesis reported by the nursing staff. Await stool for occult blood.. I contacted who advised me to contact her again if patient has any further issues or vomits blood. # drop in hematocrit: Continue monitor. Transfuse for hemoglobin less than seven. # hypokalemia: Replace per protocol # hypothyroidism: Continue levothyroxine #Hypertension: Continue losartan # hyperlipidemia: Continue atorvastatin # restless legs syndrome: Continue ropinirole # GERD: Patient is not on any medications. We will start on IV Protonix We will monitor. #code status: Patient wishes to be full code Date of Service: Oct 28, 2025 Billing Provider: LADI REBOLLEDO MD Common Visit Codes: [id number] INP/OBS CARE(HIGH) LADI REBOLLEDO MD Oct 28, 2025 12:18
[2025-10-28] MEDS ORDERED: hydrALAZINE 20mg/ml inj. IV PRN (13:25)
[2025-10-28] MEDS ORDERED: fentaNYL/PF 50MCG/1 ML 2ML syringe IV PRN ×2 (13:25)
[2025-10-28] MEDS ORDERED: ondansetron/PF 4mg/2ml inj IV PRN (13:25)
[2025-10-28] MEDS ORDERED: fentaNYL/PF 50MCG/1 ML 2ML syringe ONE (14:16)
[2025-10-28] MEDS ORDERED: midazolam 1 mg/ML 2ml injection ONE (14:17)
[2025-10-28] MEDS: magnesium Cl slow-release 64mg tablet PO PRN (17:45)
[2025-10-28] MEDS: ringers solution, lacted 1,000 ML IV SCH (18:30)
[2025-10-29] VITALS (8 sets, daily range): BP systolic 137–158; BP diastolic 58–77; PULSE 84–116; RESP 14–21; TEMP 97–98.4; O2SAT 93–97
[2025-10-29 06:52] LABS: CREATININE 0.42 MG/DL (0.40-0.90); TOTAL CARBON DIOXIDE 17.6 MMOL/L (24-32); eCRCL 104 ML/MIN; eGFR > 90 ML/MIN
[2025-10-29 07:36] LABS: MEAN PLATELET VOLUME 8.7 FL (7.4-10.4); RED CELL DISTRIBUTION WIDTH 18.2 % (11.5-14.5)
--- NOTE | 2025-10-29 11:37 | VASCULAR REPORT ---
VASC VL VENOUS HISTORY: Pain COMPARISON: VASC VL VENOUS on DOS: 10/06/25 TECHNIQUE: Duplex doppler evaluation of the deep venous system of the lower neck and proximal upper extremity(ies), including color doppler and spectral/pulsed waveform analysis was performed. FINDINGS: Right: - Internal jugular vein: Compressible - Subclavian vein: Visible portion is patent - Axillary vein: Visible portion is patent - Brachial vein: Compressible - Cephalic vein: Compressible - Basilic vein: Compressible - Ulnar vein: Not seen. - Radial vein: Compressible - Other: Nothing Left: - Subclavian vein: Visible portion is patent IMPRESSION: No right upper extremity deep venous thrombosis.
[2025-10-29] MEDS: loperamide 2mg capsule PO PRN (12:09)
[2025-10-29] MEDS ORDERED: HYPR15DR24 EACHEYE (15:54)
--- NOTE | 2025-10-29 19:14 | PROGRESS NOTE ---
Daily Progress Note Providers to CC ~ Antibiotic Timeout Antibiotic Ordered?: No Subjective The patient has a a painful red right upper extremity and a venous ultrasound was obtained which was negative for DVT. The patient is hoping to go home today however I thought it would be prudent since this is the patient has been hospitalized recently with the exact same complaint to monitor the patient overnight to make sure that that the hemoglobin remained stable. Objective Vital Signs Date Time Temp Pulse Resp B/P (MAP) Pulse Ox O2 Delivery O2 Flow Rate FiO2 10/29/25 15:00 97.8 102 18 158/77 (104) 96 Room Air 10/29/25 08:00 0.0 Result Diagram: 10/29/25 0639 10/29/25 0509 Gen. No acute distress alert and oriented 4 Lungs clear to ascultation bilaterally, no wheezes rales or rhonchi appreciated Heart normal sinus rhythm no murmurs rubs or clicks noted Abdomen soft nontender bowel sounds are normoactive upper extremities mild erythema bilaterally, mild edema bilaterally, nontender to palpation Lower extremities no clubbing cyanosis, nor edema appreciated bilaterally Coagulation Studies Laboratory Tests Test 10/27/25 07:54 Prothrombin Time 11.4 SECONDS (9.0-12.0) INR International Normalized Ratio 1.1 INR Activated Partial Thromboplast Time 26 SECONDS (22-32) Coagulation Comments Problem\Assessment\Plan 75 years old female presented to the ER for evaluation of hematemesis. # hematemesis: s/p egd with Dr Rose track patrol- which demonstrated grade LA- C esophagitis as well as gastritis and an hiatal hernia # upper GI bleed with anemia no active bleeding on EGD: Continue monitor. Transfuse for hemoglobin less than 7.0. # hypokalemia: Replace per protocol # hypothyroidism: Continue levothyroxine #Hypertension: Continue losartan # hyperlipidemia: Continue atorvastatin # restless legs syndrome: Continue ropinirole # GERD: The patient was discharged with omeprazole 20 mg b.i.d. on 10/18/2025 currently on a Protonix drip. #code status: Patient wishes to be full code Anticipate discharge in the a.m. if hemoglobin remained stable. Date of Service: Oct 29, 2025 Billing Provider: MICHELLE ALEXANDER DO Common Visit Codes: [id number] INP/OBS CARE(HIGH) MICHELLE ALEXANDER DO Oct 29, 2025 19:14
[2025-10-29] MEDS ORDERED: OMEP40CA21 PO (19:17)
[2025-10-30 02:00] VITALS: BP 144/69; PULSE 91; RESP 17; TEMP 98; O2SAT 96
[2025-10-30 06:00] VITALS: BP 135/64; PULSE 97; RESP 20; TEMP 96.6; O2SAT 94
[2025-10-30] MEDS: polyvinyl alcohol eye drops 15ML BOTTLE EACHEYE PRN (07:35)
[2025-10-30 07:45] LABS: MEAN PLATELET VOLUME 8.4 FL (7.4-10.4); RED CELL DISTRIBUTION WIDTH 17.8 % (11.5-14.5)
[2025-10-30 08:00] VITALS: BP_SYST 161; BP_SYST 168; BP_DIAS 78; BP_DIAS 82; PULSE 104; PULSE 105; RESP 12; O2SAT 96
[2025-10-30 08:15] LABS: CREATININE 0.42 MG/DL (0.40-0.90); TOTAL CARBON DIOXIDE 21.2 MMOL/L (24-32); eCRCL 104 ML/MIN; eGFR > 90 ML/MIN
[2025-10-30 11:00] VITALS: BP 147/70; PULSE 101; RESP 12; TEMP 97.4; O2SAT 95
--- NOTE | 2025-10-30 11:14 | PROGRESS NOTE- Residence ---
Progress Note - Resident Providers to CC Resident Creating Document: TONIO CASTELLANOS RES ~ Antibiotic Timeout Antibiotic Ordered?: No Subjective Patient seen and examined at the bedside. She denies anymore episode of hematemesis or epigastric pain since admission. Symptoms reported. She is anxious to be discharged. Objective Vital Signs Date Time Temp Pulse Resp B/P (MAP) Pulse Ox O2 Delivery O2 Flow Rate FiO2 10/30/25 08:00 12 96 Room Air 0.0 10/30/25 06:00 96.6 97 135/64 (87) Result Diagram: 10/30/25 0658 10/30/25 0658 General: Awake , alert, oriented time and place, no acute distress HEENT: Atraumatic, normocephalic, EOMI, anicteric sclera ; pale conjunctiva, dry mucous membranes Neck: Trachea midline. Supple, full range of motion, no JVD Cardiac: Regular rhythm, regular rate with no murmurs all over the precordium. Respiratory: Equal breath sounds bilaterally, no tachypnea, no wheezing ,rub or rales, Chest wall is symmetric and without deformity. Gastrointestinal: Abdomen symmetric, non-distended, soft, tender to deep palpation in the epigastric region, normal bowel sounds x4 quadrant, no hepatosplenomegaly Musculoskeletal: No pedal edema Neurological: Strength decreased bilaterally in lower extremities. Skin: Warm and dry Coagulation Studies Laboratory Tests Test 10/27/25 07:54 Prothrombin Time 11.4 SECONDS (9.0-12.0) INR International Normalized Ratio 1.1 INR Activated Partial Thromboplast Time 26 SECONDS (22-32) Coagulation Comments Plan Plan Assessment/plan 75-year-old female patient with a past medical history of GERD, hypothyroidism, hyperlipidemia, dementia, cerebral palsy, diverticulosis, who was admitted for upper GI bleed. She was recently admitted for similar symptoms.. GI consult was requested in view of hematemesis. EGD was done and did not show any active bleeding. She has been stable since admission Upper GI bleed - resolved - recurrent upper GI bleed - EGD: LA grade C reflux esophagitis with no bleeding. Medium-sized hiatal hernia. Gastritis, biopsied. Normal duodenal bulb and 2nd portion of the duodenum. - H&H stable since admission - continue PPI - follow-up outpatient two weeks - stable for discharge from GI standpoint Hypokalemia; CKD Hypertension; hyperlipidemia Hypothyroidism; cerebral palsy/dementia - Management by the primary team Patient was seen, examined and discussed with the attending physician Dr Rao Date of Service: Oct 30, 2025 Billing Provider: DIALLO MERCADO MD, LUCAS, RES Oct 30, 2025 11:14
[2025-10-30 12:30] VITALS: BP 161/82
[2025-10-30] MEDS ORDERED: potassium Cl 40MEQ/1/2NS 520ml 520 ML IV PRN (13:15)
[2025-10-30] MEDS ORDERED: potassium Cl 20 mEq SR tablet PO PRN (13:15)
[2025-10-30] MEDS: potassium Cl 20 mEq SR tablet PO PRN (13:23)
--- NOTE | 2025-10-30 14:06 | DISCHARGE SUMMARY ---
Discharge Summary Providers to CC ~ Discharge Summary Admission Diagnosis: Hemetemesis Hospital Course DATE OF ADMISSION: 10/27/2025 DATE OF DISCHARGE: 10/30/2025 Discharge Diagnosis\Comment: Upper GI bleed Operations\Procedures: EGD Consultants: Dr. Lanza Complications: None Condition on DC: Stable New Medications: Omeprazole (Prilosec) 40 Mg Capsule 1 CAP PO BID for 30 Days, #60 CAP Discontinued Medications: Omeprazole (Omeprazole) 20 Mg Capsule.dr 20 MG PO BID for 30 Days, #30 CAP 0 Refills Discharge Summary: History of Present Illness Patient is a 75 years old female who presented to the ER and I was informed by the ER physician that patient has been having hematemesis for three days however when I interviewed the patient, she denied having any such symptoms. She does not know why she is here. Patient was recently admitted this facility and at that time underwent an EGD which showed esophagitis. Patient has been admitted for further observation and evaluation. Patient is a poor historian. She denies having any abdominal pain however complained of discomfort on urination to the nurse. Denies having any chest pain or any focal neurological symptoms. Exam patient is alert and oriented x4 very teary-eyed with emotion to be able to go home. HEENT normocephalic nontraumatic head PERRLA CVS first and second heart sounds are regular rate rhythm no murmurs gallops or rubs Respiratory system is clear to auscultate bilaterally no rales rhonchi crackles or wheezing Abdomen is soft obese bowel sounds are positive nontender nondistended Extremities no clubbing cyanosis or edema Hospital course patient is a pleasant 75-year-old female that was admitted secondary to an upper GI bleed patient was seen in consultation by Dr. Rao. Patient had an EGD done that shows gastritis and a hiatal hernia. Patient's H&H is stable does not require any further transfusion her PPI was increased from 20 once a day to 40 b.i.d. her least one month. Patient has been given a prescription for this and advised for close follow up with PCP and GI of her choice. *Problems/Diagnosis: (1) Anemia Status: Acute (2) Esophagitis (3) Hematemesis Status: Acute (4) [place] grade C esophagitis (5) Nausea & vomiting Status: Acute (6) UGI bleed Status: Acute Total Time Spent on D/C: > 30 Minutes Date of Service: Oct 30, 2025 Billing Provider: JESSICA BLACKMAN MD Common Visit Codes: 08663-ECS/OBS DAY >30min JESSICA BLACKMAN MD Oct 30, 2025 14:05
--- NOTE | 2025-10-30 14:22 | CONSULTATION ---
DATE OF CONSULTATION: 10/27/2025 DICTATING PHYSICIAN: Ezio Rose MD REASON FOR CONSULTATION: Hematemesis. HISTORY OF PRESENT ILLNESS: The patient is 75 years old, came in because of hematemesis. Apparently, had a similar episode not too long ago, which showed severe esophagitis. However, the patient has remained hemodynamically stable. Hemoglobin is 9.6, MCV 78.6. Coagulation profile and chemistries are essentially unremarkable. Imaging study has been only a chest x-ray, which is essentially normal. PAST MEDICAL HISTORY: Hypertension, GERD, and history of esophagitis. FAMILY HISTORY: Noncontributory. PERSONAL HISTORY: Noncontributory. REVIEW OF SYSTEMS: A 12-point review of systems same as history of present illness. PHYSICAL EXAMINATION: GENERAL: She is awake, alert, and appears to be in no apparent distress. VITAL SIGNS: Normal. HEART AND LUNGS: Normal. ABDOMEN: Soft, nontender. No masses. No organomegaly. Bowel sounds are present. EXTREMITIES: Reveal no clubbing, cyanosis or edema. NEUROLOGIC: Cranial nerves bilaterally within normal limits. HEMATOLOGIC: Reveals no anemia, petechiae or purpura. PSYCHOLOGICAL: Within normal limits. IMPRESSION: The patient is admitted for hematemesis. The patient does have a history of esophagitis; however, she could have developed other etiologies including peptic ulcer disease. RECOMMENDATIONS: Continue current management including IV Protonix. We will keep her on NPO and repeat endoscopy tomorrow to further evaluate and to diagnose if there are any other additional reason for her upper GI bleed. Risks and benefits were explained, she understands and wishes to proceed. Further recommendation will be made after the endoscopy. Ezio Rose MD TID: [id number] RECEIPT: [id number] RANDEE/COLT CALVILLO
[2025-10-30] MEDS ORDERED: K and/or MAG REPLACEMENT MC SCH (20:00)
== END 2025-10-30 15:37 | disposition home health service (06) | DRG 378 ==
LOC: ER 05:06 → ED HOLD 12:39 → PCU 3S 14:34
PROVIDERS: ADMIT Internal Medicine; ATTEND Internal Medicine
PROC: 0DB68ZX Excision of Stomach, Via Natural or Artificial Opening Endoscopic, Diagnostic (ICD-10-PCS; principal; 2025-10-28 14:18)
DX: K29.01 Acute gastritis with bleeding (principal); R71.0 Precipitous drop in hematocrit; E03.9 Hypothyroidism, unspecified; G25.81 Restless legs syndrome; I12.9 Hypertensive chronic kidney disease with stage 1 through stage 4 chronic kidney disease, or unspecified chronic kidney disease; F03.90 Unspecified dementia, unspecified severity, without behavioral disturbance, psychotic disturbance, mood disturbance, and anxiety; G80.9 Cerebral palsy, unspecified; M81.0 Age-related osteoporosis without current pathological fracture; E78.00 Pure hypercholesterolemia, unspecified; K21.9 Gastro-esophageal reflux disease without esophagitis; K44.9 Diaphragmatic hernia without obstruction or gangrene; K57.30 Diverticulosis of large intestine without perforation or abscess without bleeding; E87.6 Hypokalemia; Z88.8 Allergy status to other drugs, medicaments and biological substances; Z90.710 Acquired absence of both cervix and uterus; K21.00 Gastro-esophageal reflux disease with esophagitis, without bleeding
CPT/HCPCS: 36415; 43239; 71045; 80048; 81001; 83735; 84132; 85025; 85610; 85730; 86885; 86900; 86901; 87081; 93005; 93971; 99285; A4615; A4620; A6250; A6258; G0378; J2250; J2405; J2470; J3010; J7030; J7040